=== PATIENT | female | born 1935 | race Caucasian/White ===

== ENCOUNTER 2022-02-07 05:34 | Inpatient (IN) | payer MEDICARE, OTHER, SELFPAY ==
[2022-02-07] VITALS (13 sets, daily range): BP systolic 100–139; BP diastolic 54–84; PULSE 57–89; RESP 16–20; TEMP 35.8–36.6; O2SAT 92–100; BMI 31.6
--- NOTE | 2022-02-07 01:59 | ADMGEN ---
This patient, Ana Solo, was admitted to 2 Medical Room 259-01. Patient/family oriented to hospital policies and general routines including ID bracelet, bed and alarms, visiting hours, pain management, procedures, bathroom and other care routines, personal items, smoking policy, room service/diet, and visiting hours. Information on how to activate the Rapid Response Team has been discussed. Patient/Family are encouraged to report perceived risks to care and to ask questions if they do not understand what they are told or what they should do.
[2022-02-07] MEDS: DEXTROSE 5%/0.45% SOD CHL 1,000 ML 100 ML IV CONT ×2 (05:45→23:56)
[2022-02-07 06:25] LABS: Basophils Percent Auto 0.4 % (0.2-1.2); Eosinophils Absolute Auto 0.1 K/mm3 (0-0.3); Eosinophils Percent Auto 0.9 % (0-4.4); Hematocrit 48.1 % (37.0-47.0); Hemoglobin 15.2 g/dL (12.0-15.0); Immature Granulocyte Absolute 0.03 K/mm3 (0.00-0.031); Immature Granulocyte Percent A 0.4 % (0-0.5); Lymphocytes Absolute Auto 1.52 K/mm3 (0.9-3.2); Lymphocytes Percent Auto 21.6 % (18.3-44.2); Mean Corpuscular HGB Conc 31.6 g/dl (32-36); Mean Corpuscular Hemoglobin 32.3 pg (26-34); Mean Corpuscular Volume 102.3 fl (80-100); Mean Platelet Volume 9.6 fl (7.4-10.4); Monocytes Absolute Auto 0.6 K/mm3 (0.1-0.6); Monocytes Percent Auto 8.8 % (2.6-8.5); Neutrophils Absolute Auto 4.8 K/mm3 (1.3-6.7); Neutrophils Percent Auto 67.9 % (45.5-73.1); Platelet Count Result 178 k/mm3 (150-375); Red Cell Distribution Width 16.5 % (11.5-14.5)
[2022-02-07] MEDS: ONDANSETRON INJ 4 MG/2 ML VIAL IV PUSH ×2 (06:28→14:16)
[2022-02-07] MEDS: HYDROmorphone HCL INJ (*CRX) 1 MG/ML SYR 0.5 MG IV PUSH (06:29)
[2022-02-07 06:39] LABS: Partial Thromboplastin Time 40.7 SECONDS (22.3-36.8); Prothrombin Time 22.3 Seconds (11.1-14.7)
[2022-02-07 06:43] LABS: Anion Gap 8 mmol/L (8-16); Blood Urea Nitrogen 28 mg/dL (7-17); Calcium 9.2 mg/dL (8.4-10.2); Carbon Dioxide 26 mmol/L (22-30); Chloride 100 mmol/L (98-107); Estimated CRCL calculation 63 ml/min; Estimated Glomerular Filt Rate > 60; Glucose 104 mg/dL (65-110); Potassium 4.2 mmol/L (3.4-5.0); Sodium 134 mmol/L (137-145)
--- NOTE | 2022-02-07 08:15 | PM.IMHP ---
H&P: HPI History of Present Illness Date/Time: 02/07/22 08:15 Chief Complaint: Incarcerated hernia Narrative: 87-year-old female with known history of liver mass that is being treated conservatively given her age and comorbidities [facility] ep[facility] abdominal pain associated no vomiting. she also noted that her right inguinal hernia was bigger and more former and sore over the past 24 hours. It was out and not able to be reduced whole day yesterday. She was assessed in the ER for evaluation. She was noted to have right inguinal hernia in the ER 1 was attempted to be reduced which was not able to be done. She was then sent to this hospital for surgical evaluation. Lab evaluation in the ER WBC 5.7 hemoglobin 16 hematocrit 49 platelet 194 INR 2.2 PTT 43 Glucose 123 BUN 29 creatinine of 0.8 sodium 132 potassium 6.9 chloride 99 bicarbonate 31 calcium 8.5 total bilirubin 1.7 total protein 7 albumin 1.9 AST 121 ALT 41 alkaline phosphatase is 236 troponin 13 lactic acid is 1.5 lipase 86 There is also reported another BMP with potassium was 4.9, potassium was feel to be Allen yes as no treatment was done and was repeated which came back as normal. CT abdomen and pelvis right inguinal hernia with evidence of incarceration and some concern for developing bowel obstruction due to dilated loops just proximal to the hernia. COVID swab was done which was negative Family history mother MRI, father stroke, coronary artery disease Social history: Former smoker social drinker no illicit drug use Past medical history: Diffuse arthritis, hypertension, proximal atrial fibrillation on chronic anticoagulation Review of Systems Review of Systems: - CONSTITUTIONAL: Denies weight loss, fever and chills. - HEENT: Denies changes in vision and hearing - RESPIRATORY: Denies SOB and cough. - CV: Denies palpitations and CP. - GI: reports abdominal pain, nausea, no vomiting and diarrhea. - : Denies dysuria and urinary frequency. - MSK: Denies myalgia and joint pain. - SKIN: Denies rash and pruritus. - NEUROLOGICAL: Denies headache and syncope. - PSYCHIATRIC: Denies recent changes in mood. Denies anxiety and depression. [facility] Family History Family History (Updated 02/07/22 @ 02:07 by Flaca Walton RN) Mother Acute myocardial infarction Abdominal aneurysm Social History Social History Smoking status: Never smoker Alcohol intake: former Drinks per week: 7 Substance use: never Substance use type: does not use Spiritual care concerns: No Meds Home Medications and Allergies Home Medications Medication Instructions Recorded Confirmed Type baclofen 10 mg tablet 10 mg PO TID PRN .muscle spasms 02/07/22 02/07/22 History furosemide 40 mg tablet 40 mg PO DAILY 02/07/22 02/07/22 History melatonin 1 mg tablet 2 mg PO HS PRN Sleep 02/07/22 02/07/22 History potassium chloride 10 mEq 10 meq PO DAILY 02/07/22 02/07/22 History tablet,extended release (Klor-Con) propranolol 20 mg tablet 20 mg PO TID 02/07/22 02/07/22 History spironolactone 25 mg tablet 25 mg PO DAILY 02/07/22 02/07/22 History tramadol 50 mg tablet 50 mg PO Q6H PRN pain 02/07/22 02/07/22 History vitamins A,C,T-mlna-ckevno 14,320 1 cap PO BID 02/07/22 02/07/22 History unit-226 mg-200 unit capsule (PreserVision AREDS) warfarin 3 mg tablet 3 mg PO DAILY 02/07/22 02/07/22 History Allergies Allergy/AdvReac Type Severity Reaction Status Date / Time omeprazole [From Prilosec] Allergy Hives Verified 02/07/22 05:18 Vital Signs Vital Signs - 24 hr 02/07/22 02:33 02/07/22 02:36 02/07/22 03:41 Temperature 96.6 F L 97.5 F L Pulse Rate 61 71 Respiratory Rate 20 20 Blood Pressure 133/65 139/75 Pulse Oximetry 95 100 Oxygen Delivery Room Air Exam Narrative: GENERAL: The patient is well developed, not in acute distress HEENT: Nonicteric sclerae, PERRLA, EOMI. Oropharynx clear. Moist mu
--- NOTE | 2022-02-07 09:54 | PM.CNGS ---
Assessment and Plan Assessment and plan (1) Incarcerated right inguinal hernia: Code(s): K40.30 - Unilateral inguinal hernia, with obstruction, without gangrene, not specified as recurrent Status: Acute Assessment and Plan: Patient presented to [place] ER with an incarcerated right inguinal hernia. She has noticed a bulge in her right groin for many years, but has been asymptomatic. CT scan at [place] [facility] showed an incarcerated right inguinal hernia containing a segment of small bowel with possible developing bowel obstruction secondary to the hernia. Her right inguinal hernia has now been reduced. Her abdominal exam is benign. Recommend proceeding with repair incarcerated right inguinal hernia by Dr. Frederick. Description of the procedure, risks, benefits, expected outcomes, and expected recovery were discussed with the patient in detail. Given her comorbidities, age, and anticoagulation, the patient does have some increased risks for surgery. She is currently on warfarin therapy for her atrial fibrillation. INR is 2.0. The hospitalist is working on reversing her anticoagulation to plan for surgery tomorrow. We will allow her to have a regular diet today and make her NPO after midnight. (2) Atrial fibrillation: Code(s): I48.91 - Unspecified atrial fibrillation Status: Chronic Assessment and Plan: Rate controlled. Propranolol continued. Patient takes warfarin for chronic anticoagulation. Hold warfarin for surgery. 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 INR 2.2 at outlying facility and repeated this morning here which showed an INR of 2.0. Dr. Frederick discussed reversal of the anticoagulation with the hospitalist. She will be receiving vitamin K and 2 units of FFP. Recheck INR in the morning. (4) Hypertension: Code(s): I10 - Essential (primary) hypertension Status: Chronic (5) Lymphedema: Code(s): I89.0 - Lymphedema, not elsewhere classified Status: Chronic (6) Unspecified fracture of right femur, sequela: Code(s): S72.91XS - Unspecified fracture of right femur, sequela Status: Chronic Assessment and Plan: Distal right femur fracture in November of 2021 being managed conservatively with nonoperative treatment. She takes tramadol and baclofen as needed. She has been undergoing physical therapy at [facility] since November. Plan I have discussed the patient's case and plan of care with Dr. Frederick. Thank you for allowing us to see the patient in consultation and we will continue to follow along with you. History of Present Illness Consult details Consult date: 02/07/22 Reason for consult: other Requesting physician: Rogers Ocampo MD Narrative: This is an 87-year-old female with a history of chronic atrial fibrillation on warfarin therapy, hypertension, essential tremors, and lymphedema, who presented to [place] [facility] from [facility] for evaluation of epigastric abdominal pain. She reports noticing a bulge in her right groin intermittently for many years. She denies ever having pain or issues with the bulge until yesterday. She reports an onset of epigastric abdominal pain after having breakfast. Her pain became more severe as the day went on and she developed nausea with one episode of vomiting. In the afternoon, she did notice a firm bulge in her right groin. She reports that the bulge felt larger than normal and was hard. She denies any tenderness or pain in her groin. Due to the persistent abdominal pain, she presented to the ER in [place]. CT scan of the abdomen and pelvis showed evidence of an incarcerated right inguinal hernia with a segment of small bowel with concern for developing bowel obstruction secondary to the hernia. The patient is on warfarin therapy and her INR was 2.2 at the [facility]
[2022-02-07] MEDS: PHYTONADIONE ADULT INJ 10 MG in DEXTROSE 5% IN WATER 50 ML 100 MG IVPB (10:04)
[2022-02-07] MEDS: PROPRANOLOL HCL 20 MG TABLET PO ×3 (10:07→16:50)
--- NOTE | 2022-02-07 11:35 | WPDANESEPPF ---
Anes - Initial Pre Proc Eval Procedure: Operation Date: 02/08/22 13:00 Proposed Procedures p Inguinal Hernia Repair(Right) - Xu Frederick MD Date/Time: 02/07/22 11:35 Surgeon: Uri Strong MD Pre Op Diagnosis: Incarcerated Hernia Patient Data Age: 87 Gender: F Height: 1.75 m Weight: 97 kg Last Vital Signs Temp 36.3 C L 02/07/22 11:19 Pulse 73 02/07/22 11:19 Resp 20 02/07/22 11:19 BP 100/56 L 02/07/22 11:19 Pulse Ox 93 02/07/22 11:19 O2 Del Method Room Air 02/07/22 02:33 Allergies Allergy/AdvReac Type Severity Reaction Status Date / Time omeprazole [From [facility]] Allergy Hives Verified 02/08/22 11:35 Home Medications Medication Instructions Recorded Confirmed Type baclofen 10 mg tablet 10 mg PO TID PRN .muscle spasms 02/07/22 02/07/22 History furosemide 40 mg tablet 40 mg PO DAILY 02/07/22 02/07/22 History melatonin 1 mg tablet 2 mg PO HS PRN Sleep 02/07/22 02/07/22 History potassium chloride 10 mEq 10 meq PO DAILY 02/07/22 02/07/22 History tablet,extended release (Klor-Con) propranolol 20 mg tablet 20 mg PO TID 02/07/22 02/07/22 History spironolactone 25 mg tablet 25 mg PO DAILY 02/07/22 02/07/22 History tramadol 50 mg tablet 50 mg PO Q6H PRN pain 02/07/22 02/07/22 History vitamins A,C,N-cgyi-qkbdow 14,320 1 cap PO BID 02/07/22 02/07/22 History unit-226 mg-200 unit capsule (PreserVision AREDS) warfarin 3 mg tablet 3 mg PO DAILY 02/07/22 02/07/22 History Laboratory Tests 02/07/22 02/07/22 02/07/22 06:15 06:15 06:15 WBC 7.0 K/mm3 K/mm3 (4.5-10.0) RBC 4.70 M/mm3 M/mm3 (4.2-5.4) Hgb 15.2 g/dL H g/dL (12.0-15.0) Hct 48.1 % H % (37.0-47.0) MCV 102.3 fl H fl (80-100) MCH 32.3 pg pg (26-34) MCHC 31.6 g/dl L g/dl (32-36) RDW 16.5 % H % (11.5-14.5) Plt Count 178 k/mm3 k/mm3 (150-375) MPV 9.6 fl fl (7.4-10.4) Immature Gran % (Auto) 0.4 % % (0-0.5) Neut % (Auto) 67.9 % % (45.5-73.1) Lymph % (Auto) 21.6 % % (18.3-44.2) [place] % (Auto) 8.8 % H % (2.6-8.5) Eos % (Auto) 0.9 % % (0-4.4) Baso % (Auto) 0.4 % % (0.2-1.2) Lymph # (Auto) 1.52 K/mm3 K/mm3 (0.9-3.2) [place] # (Auto) 0.6 K/mm3 K/mm3 (0.1-0.6) Eos # (Auto) 0.1 K/mm3 K/mm3 (0-0.3) Baso # (Auto) 0.0 K/mm3 K/mm3 (0.0-0.1) Abs Immat Gran (auto) 0.03 K/mm3 K/mm3 (0.00-0.031) Absolute Neuts (auto) 4.8 K/mm3 K/mm3 (1.3-6.7) Absolute Nucleated RBC 0.0 K/mm3 K/mm3 (0.0-0.012) Nucleated RBC % 0.0 % % (0.0-0.2) PT 22.3 Seconds H Seconds (11.1-14.7) INR 2.0 APTT 40.7 SECONDS H SECONDS (22.3-36.8) Sodium 134 mmol/L L mmol/L (137-145) Potassium 4.2 mmol/L mmol/L (3.4-5.0) Chloride 100 mmol/L mmol/L (98-107) Carbon Dioxide 26 mmol/L mmol/L (22-30) Anion Gap 8 mmol/L mmol/L (8-16) BUN 28 mg/dL H mg/dL (7-17) Creatinine 0.70 mg/dL mg/dL (0.7-1.0) Estim Creat Clear Calc 63 ml/min ml/min Estimated GFR > 60 (59 - ) Glucose 104 mg/dL mg/dL (65-110) Calcium 9.2 mg/dL mg/dL (8.4-10.2) Blood Type 02/07/22 08:44 WBC RBC Hgb Hct MCV MCH MCHC RDW Plt Count MPV Immature Gran % (Auto) Neut % (Auto) Lymph % (Auto) [place] % (Auto) Eos % (Auto) Baso % (Auto) Lymph # (Auto) [place] # (Auto) Eos # (Auto) Baso # (Auto) Abs Immat Gran (auto) Absolute Neuts (auto) Absolute Nucleated RBC Nucleated RBC % PT INR APTT Sodium Potassium Chloride Carbon Dioxide Anion Gap BUN Creati
[2022-02-07] MEDS: OPTI-GEN TAB 1 TABLET PO (16:46)
[2022-02-07] MEDS: traMADol HCL (*CRX) 50 MG TABLET PO (17:44)
[2022-02-08] VITALS (13 sets, daily range): BP systolic 97–140; BP diastolic 48–80; PULSE 54–79; RESP 12–20; TEMP 35.7–36.6; O2SAT 95–100
[2022-02-08 05:55] LABS: Hematocrit 49.1 % (37.0-47.0); Hemoglobin 15.2 g/dL (12.0-15.0); Mean Corpuscular Hemoglobin 32.5 pg (26-34); Mean Corpuscular Volume 104.9 fl (80-100); Platelet Count Result 157 k/mm3 (150-375); Red Blood Count 4.68 M/mm3 (4.2-5.4); Red Cell Distribution Width 16.5 % (11.5-14.5); White Blood Count 5.5 K/mm3 (4.5-10.0)
[2022-02-08 06:04] LABS: INR 1.5; Prothrombin Time 17.5 Seconds (11.1-14.7)
[2022-02-08 06:05] LABS: Partial Thromboplastin Time 35.4 SECONDS (22.3-36.8)
[2022-02-08 06:22] LABS: Anion Gap 4 mmol/L (8-16); Blood Urea Nitrogen 24 mg/dL (7-17); Calcium 8.9 mg/dL (8.4-10.2); Carbon Dioxide 34 mmol/L (22-30); Chloride 97 mmol/L (98-107); Estimated CRCL calculation 50 ml/min; Estimated Glomerular Filt Rate 60; Glucose 91 mg/dL (65-110); Potassium 4.5 mmol/L (3.4-5.0); Sodium 135 mmol/L (137-145)
[2022-02-08] MEDS: PROPRANOLOL HCL 20 MG TABLET PO ×2 (08:29→16:19)
--- NOTE | 2022-02-08 11:01 | WPDANESEPPF ---
Anes - Initial Pre Proc Eval Procedure: Operation Date: 02/08/22 12:00 Proposed Procedures p Inguinal Hernia Repair(Right) - Xu Frederick MD Date/Time: 02/08/22 11:01 Surgeon: Otoniel Pre Op Diagnosis: Incarcerated Hernia Patient Data Age: 87 Gender: F Height: 1.75 m Weight: 97 kg Last Vital Signs Temp 36.3 C L 02/08/22 08:28 Pulse 68 02/08/22 08:28 Resp 16 02/08/22 08:28 BP 104/61 02/08/22 08:28 Pulse Ox 96 02/08/22 08:28 O2 Del Method Room Air 02/07/22 20:00 Allergies Allergy/AdvReac Type Severity Reaction Status Date / Time omeprazole [From [facility]] Allergy Hives Verified 02/07/22 05:18 Home Medications Medication Instructions Recorded Confirmed Type baclofen 10 mg tablet 10 mg PO TID PRN .muscle spasms 02/07/22 02/07/22 History furosemide 40 mg tablet 40 mg PO DAILY 02/07/22 02/07/22 History melatonin 1 mg tablet 2 mg PO HS PRN Sleep 02/07/22 02/07/22 History potassium chloride 10 mEq 10 meq PO DAILY 02/07/22 02/07/22 History tablet,extended release (Klor-Con) propranolol 20 mg tablet 20 mg PO TID 02/07/22 02/07/22 History spironolactone 25 mg tablet 25 mg PO DAILY 02/07/22 02/07/22 History tramadol 50 mg tablet 50 mg PO Q6H PRN pain 02/07/22 02/07/22 History vitamins A,C,R-ilfe-rtpzcp 14,320 1 cap PO BID 02/07/22 02/07/22 History unit-226 mg-200 unit capsule (PreserVision AREDS) warfarin 3 mg tablet 3 mg PO DAILY 02/07/22 02/07/22 History Laboratory Tests 02/07/22 02/08/22 02/08/22 08:44 05:24 05:24 WBC 5.5 K/mm3 K/mm3 (4.5-10.0) RBC 4.68 M/mm3 M/mm3 (4.2-5.4) Hgb 15.2 g/dL H g/dL (12.0-15.0) Hct 49.1 % H % (37.0-47.0) MCV 104.9 fl H fl (80-100) MCH 32.5 pg pg (26-34) MCHC 31.0 g/dl L g/dl (32-36) RDW 16.5 % H % (11.5-14.5) Plt Count 157 k/mm3 k/mm3 (150-375) MPV 10.0 fl fl (7.4-10.4) PT 17.5 Seconds H D Seconds (11.1-14.7) INR 1.5 APTT 35.4 SECONDS SECONDS (22.3-36.8) Sodium Potassium Chloride Carbon Dioxide Anion Gap BUN Creatinine Estim Creat Clear Calc Estimated GFR Glucose Calcium Blood Type AB Positive 02/08/22 05:24 WBC RBC Hgb Hct MCV MCH MCHC RDW Plt Count MPV PT INR APTT Sodium 135 mmol/L L mmol/L (137-145) Potassium 4.5 mmol/L mmol/L (3.4-5.0) Chloride 97 mmol/L L mmol/L (98-107) Carbon Dioxide 34 mmol/L H mmol/L (22-30) Anion Gap 4 mmol/L L mmol/L (8-16) BUN 24 mg/dL H mg/dL (7-17) Creatinine 0.90 mg/dL mg/dL (0.7-1.0) Estim Creat Clear Calc 50 ml/min ml/min Estimated GFR 60 (59 - ) Glucose 91 mg/dL mg/dL (65-110) Calcium 8.9 mg/dL mg/dL (8.4-10.2) Blood Type Results Review: All pre-operative results and documents have been reviewed as part of the pre-operative evaluation. [facility] Past Medical History Medical History (Updated 02/07/22 @ 11:36 by Narayan Tucker MD) Arthritis Atrial fibrillation Essential and other specified forms of tremor Hypertension Incarcerated right inguinal hernia Unspecified fracture of right femur, sequela Surgical History Surgical History (Updated 02/07/22 @ 10:09 by ARLENE Guzmán) History of cholecystectomy Open cholecystectomy History of joint replacement History of knee replacement History of vein stripping Family History Family History Mother Acute myocardial infarction Abdominal aneurysm Social History Social History Social History: Patient lives at home with her , but has been in [facility]
[2022-02-08] MEDS: LACTATED RINGERS 1,000 ML 30 ML IV CONT (11:33)
--- NOTE | 2022-02-08 12:01 | WPDHPUPDATE1 ---
History and Physical Update Update Date/Time: 02/08/22 12:01 History and Physical has been reviewed, including an updated exam of the patient. There are NO changes in the patient's condition. Risks, benefits, and alternatives have been discussed and questions answered. Patient agrees to proceed with procedure.
--- NOTE | 2022-02-08 12:08 | PM.IMPN ---
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 Features of developing small-bowel obstruction and the recent CT scan reported. General surgery consulted. Plan for hernia repair today #perioperative anticoagulation management. Her warfarin held for the planned surgery. INR is 2. Given vitamin K for reversal of her INR. Along with 2 units of FFP. Recheck INR this morning was 1.5. Resume warfarin post surgery when appropriate from the surgical standpoint. # atrial fibrillation chronic rate controlled. INR therapeutic. On Coumadin for stroke prophylaxis. On propranolol for rate control/essential tremor which will be continued perioperatively. #hypertension stable home medication # essential tremors on propranolol # recent right femur fracture distal November 2021 Pamella is conservatively/non operatively by Dr. Pantoja. pain control with current medication which is baclofen for the spasms # chronic bilateral lower extremity lymphedema on spironolactone and furosemide. # insomnia on melatonin at night p.r.n.. # DVT prophylaxis therapeutic INR though Coumadin on hold for planned surgery in the morning # code status full code Subjective Date/time seen: 02/08/22 12:08 Interval history: No overnight events. No new complains. Denies any chest pain or shortness of breath. Denies any abdominal pain nausea vomiting. Going for the surgery today for the hernia repair. Review of Systems Review of Systems: All systems reviewed & are unremarkable except as noted in HPI and below Exam Narrative: GENERAL: The patient is well developed, not in acute distress HEENT: Nonicteric sclerae, PERRLA, EOMI. Oropharynx clear. Moist mucous membranes. Conjunctivae appear well perfused. CHEST: Chest wall is nontender. HEART: Regular rate and rhythm without murmur, rubs, or gallops LUNGS: Clear to auscultation bilaterally. no respiratory distress ABDOMEN: Soft, positive bowel sounds, non-tender, no organomegaly. no hernia noted SKIN: No rash, no excessive bruising, petechiae, or purpura. NEUROLOGIC: Cranial nerves II-XII intact, alert and oriented x 3, no gross motor deficitsEssential tremors noted EXTREMITIES: bilateral lymphedema, no cyanosis or clubbing Objective Data Vital Signs Vital Signs: Vital Signs - 24 hr 02/07/22 13:40 02/07/22 13:34 02/07/22 12:34 Temperature 97.9 F 97.9 F Pulse Rate 89 89 70 Respiratory Rate 20 18 Blood Pressure 110/54 L 114/58 L Pulse Oximetry 92 93 Oxygen Delivery 02/07/22 13:34 02/07/22 14:45 02/07/22 16:50 Temperature 97.9 F 97.9 F Pulse Rate 89 64 64 Respiratory Rate 20 18 Blood Pressure 110/54 L 127/65 Pulse Oximetry 92 95 Oxygen Delivery 02/07/22 16:10 02/07/22 20:00 02/07/22 20:00 Temperature 96.6 F L 96.5 F L Pulse Rate 57 L 64 Respiratory Rate 18 20 Blood Pressure 118/71 111/84 Pulse Oximetry 98 97 Oxygen Delivery Room Air 02/08/22 00:00 02/08/22 03:36 02/08/22 08:28 Temperature 96.3 F L 96.3 F L 97.3 F L
[2022-02-08] MEDS: ceFAZolin 2 GM/D5W 50 ML 2 GM/50 ML BAG IVPB (12:54)
[2022-02-08] MEDS: BUPIVACAINE/EPINEPHRINE 0.25% 50 ML VIAL 30 ML INFILTRATE (13:16)
--- NOTE | 2022-02-08 14:41 | W.PM.PROC2 ---
Procedure Note - Detailed Date of Procedure 02/08/22 Pre-op Diagnosis Incarcerated right inguinal hernia Post-op Diagnosis Other (Incarcerated right femoral hernia) Procedure Performed Repair incarcerated right femoral hernia with Josiah's ligament repair (Madison). Surgeon Xu Frederick MD Form Setter/Driver Oren RODRÍGUEZ Anesthesia General, Local (0.25% bupivacaine with epinephrine) and Other (Xaracoll) Indications Patient transferred from the emergency room in [place] night before last with an incarcerated right inguinal hernia. When she arrived here the hernia was no longer painful but could not be reduced. She was anticoagulated with warfarin and that has been reversed. She is taken to surgery now for repair of incarcerated right inguinal hernia Findings This was actually a large incarcerated femoral hernia with cecum protruding from the femoral hernia defect. Patient had also had previous vein stripping and there was scar tissue in the femoral area from this prior surgery. A subcutaneous drain was placed in the right femoral area as there was a large space left behind once the hernia was reduced. With the 2 femoral surgeries, seroma or even lymphocele are a risk postoperatively. Description of Procedure Patient was taken to surgery and anesthesia was introduced. The right groin and pubic regions as well as the abdomen were prepped and draped. The proposed incision was marked on the right inguinal area. Local was infiltrated into the skin and the subcutaneous. Incision was made and dissection was then carried down through the subcutaneous. Just below Arsenio's fascia we encountered the herniated contents. This was obviously some of the colon and since we were on the right side, most likely this was cecum. There were a lot of adhesions of the incarcerated tissue with the previous dissection for vein stripping. Cautery was used for hemostasis. The herniated contents were dissected free from the surrounding tissues. It took a fair amount of time to identify the external oblique aponeurosis and the external ring and clearly know this was a femoral hernia. Once the anatomy was dissected out fairly clearly, local anesthesia was infiltrated deep to the external oblique aponeurosis in the area of the inguinal canal. The external oblique aponeurosis was opened laterally and extended medially through the external ring. The ilioinguinal nerve was really never seen in the inguinal canal. We dissected the leaves of the aponeurosis from the round ligament and inguinal canal contents. I then mobilized the round ligament medially and divided it with the cautery. I then dissected the round ligament back to the internal ring and divided it at the internal ring such that it would retract into the abdomen. Round ligament was discarded. I then exposed the area of the femoral canal within the inguinal canal. I dilated the femoral canal from below the inguinal ligament with finger dissection. I tried to reduce the hernia but was unsuccessful. I then used a some sharp dissection as well as some additional finger dissection and eventually freed up the adhesions at the neck of the femoral canal such that I could reduce the incarcerated hernia contents. I placed a Ray-Radha sponge in the defect. A looked for any signs of bleeding and achieved good hemostasis. I then dissected from the pubic tubercle down to Josiah's ligament. We proceeded with a Coopers ligament or Madison repair. 0 Ethibond suture were placed starting at the pubic tubercle and suturing the pubic tubercle to the transversalis fascia medially. The next few sutures sutured transversalis fascia to Josiah's ligament. A transition stitch was then placed suturing transversalis fascia to Josiah's ligament and to the reflection of the inguinal ligament. This obliterated the femoral hernia defect. We then continued suturing transversalis fascia to the reflection of the inguinal ligament from medial to lateral u
[2022-02-08] MEDS: SPIRONOLACTONE 25 MG TABLET PO (16:18)
[2022-02-08] MEDS: POTASSIUM CHLORIDE 10 MEQ TABLET.ER PO (16:18)
[2022-02-08] MEDS: FUROSEMIDE 40 MG TABLET PO (16:18)
[2022-02-08] MEDS: FAMOTIDINE 20 MG/2 ML VIAL IV PUSH (20:59)
[2022-02-09 00:08] VITALS: BP 124/58; PULSE 87; RESP 20; TEMP 36.3; O2SAT 98
[2022-02-09] MEDS: DEXTROSE 5%/0.45% SOD CHL 1,000 ML 60 ML IV CONT (00:24)
[2022-02-09 05:22] VITALS: BP 112/50; PULSE 68; RESP 20; TEMP 36.4; O2SAT 93
[2022-02-09 06:02] LABS: Hematocrit 43.5 % (37.0-47.0); Hemoglobin 13.9 g/dL (12.0-15.0); Mean Corpuscular Hemoglobin 32.9 pg (26-34); Mean Corpuscular Volume 102.8 fl (80-100); Mean Platelet Volume 9.8 fl (7.4-10.4); Platelet Count Result 171 k/mm3 (150-375); Red Blood Count 4.23 M/mm3 (4.2-5.4); Red Cell Distribution Width 16.2 % (11.5-14.5); White Blood Count 6.8 K/mm3 (4.5-10.0)
[2022-02-09 06:12] LABS: INR 1.4; Prothrombin Time 16.9 Seconds (11.1-14.7)
[2022-02-09 06:17] LABS: Anion Gap 3 mmol/L (8-16); Blood Urea Nitrogen 24 mg/dL (7-17); Calcium 8.2 mg/dL (8.4-10.2); Carbon Dioxide 32 mmol/L (22-30); Chloride 99 mmol/L (98-107); Estimated CRCL calculation 50 ml/min; Estimated Glomerular Filt Rate 60; Glucose 95 mg/dL (65-110); Potassium 4.4 mmol/L (3.4-5.0); Sodium 134 mmol/L (137-145)
[2022-02-09] MEDS: traMADol HCL (*CRX) 50 MG TABLET PO ×2 (07:19→23:59)
[2022-02-09] MEDS: PROPRANOLOL HCL 20 MG TABLET PO ×3 (08:10→17:57)
[2022-02-09] MEDS: FUROSEMIDE 40 MG TABLET PO (08:10)
[2022-02-09] MEDS: POTASSIUM CHLORIDE 10 MEQ TABLET.ER PO (08:10)
[2022-02-09] MEDS: ENOXAPARIN 40 MG/0.4 ML SYRINGE SUB-Q (08:10)
[2022-02-09] MEDS: SPIRONOLACTONE 25 MG TABLET PO (08:10)
[2022-02-09] MEDS: FAMOTIDINE 20 MG/2 ML VIAL IV PUSH (08:11)
--- NOTE | 2022-02-09 08:23 | PM.PNGS ---
Progress Note: A&P Assessment and Plan (1) Incarcerated femoral hernia: Code(s): K41.30 - Unilateral femoral hernia, with obstruction, without gangrene, not specified as recurrent Status: Acute Assessment and Plan: Incision looks good. No evidence recurrent hernia or wound problems. Sanguinous drainage from LANNY drain. Drain will need to be in several days. Probably she will go back to the group home facility with the drain in place. Will go ahead and restart physical therapy today. Up in chair. Advanced to regular diet. 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 INR 1.4 Subjective Subjective Date/Time Seen: 02/09/22 08:23 Post Op day: 1 Patient reports: pain is less (Minimal right groin discomfort), tolerating liquids well, no flatus, no bowel movement, afebrile and other (Complains of her feet hurting, takes tramadol for this, chronic problem) Exam Const: General: comfortable and no acute distress; No confusion GI: Inspection: non-distended, incision (Dry and healing well), no visible herniation and other (Bloody drainage in LANNY drain) GI Palp: Yes Soft to palpation, Yes Tenderness to palpation present (GI) (Minimal right groin tenderness), No Guarding due to palpation present (GI), No Hernia present and No Rebound tenderness present Neuro: General: no focal motor deficits and No confusion Extrem: General: no calf tenderness and no edema Psych: Affect: normal affect Insight: Good insight present (Psych) Judgement: Good judgement present (Psych) Objective Data Vital Signs Vital Signs: Vital Signs - 24 hr 02/08/22 08:28 02/08/22 10:57 02/08/22 14:45 Temperature 36.3 C L 36.6 C 36.3 C L Pulse Rate 68 63 62 Respiratory Rate 16 18 13 Blood Pressure 104/61 97/63 L 121/60 Pulse Oximetry 96 99 99 Oxygen Delivery Room Air Simple Face Mask Oxygen Flow Rate 8 02/08/22 15:15 02/08/22 15:30 02/08/22 15:45 Temperature Pulse Rate 70 79 71 Respiratory Rate 16 12 12 Blood Pressure 126/71 140/78 124/77 Pulse Oximetry 98 97 99 Oxygen Delivery Room Air Room Air Room Air Oxygen Flow Rate 02/08/22 16:30 02/08/22 16:45 02/08/22 17:15 Temperature 36.4 C 36.4 C 36.4 C Pulse Rate 63 71 70 Respiratory Rate 18 18 18 Blood Pressure 132/80 129/75 128/70 Pulse Oximetry 98 100 98 Oxygen Delivery Oxygen Flow Rate 02/08/22 18:15 02/08/22 19:57 02/09/22 00:08 Temperature 36.5 C 35.8 C L 36.3 C L Pulse Rate 72 67 87 Respiratory Rate 18 20 20 Blood Pressure 130/74 104/48 L 124/58 L Pulse Oximetry 98 100 98 Oxygen Delivery Oxygen Flow Rate 02/09/22 05:22 Temperature 36.4 C L Pulse Rate 68 Respiratory Rate 20 Blood Pressure 112/50 L Pulse Oximetry 93 Oxygen Delivery Oxygen Flow Rate Intake/Output Intake/Output: Intake & Output 02/06/22 02/07/22 02/08/22 02/09/22 23:59 23:59 23:59 23:59 Intake Total 1997 2740 290 Output Total 100 640 870 Balance 1898 2100 -580 Meds/Results Medications: Active Medications Generic Name Dose Route Start Last Admin Trade Name Freq PRN Reason Stop Dose Admin Acetaminophen 500 mg 02/08/22 15:58 Acetaminophen 500 Mg Tablet PO Q6H PRN Mild Pain (1-3) or Fever Hydrocodone Bitart/Acetaminophen 1 tab 02/08/22 15:58 Hydrocodone/Acetaminophen (*Crx) 7.5-325 Mg Tablet PO Q4H PRN Pain Rated 7-10 Baclofen 10 mg 02/07/22 09:30 Baclofen 10 Mg Tablet PO TID PRN .muscle spasms Enoxaparin Sodium 40 mg 02/09/22 09:00 02/09/22 08:10 Enoxaparin 40 Mg/0.4 Ml Syringe SUB-Q 40 mg DAILY KYLE Administration Famotidine 20 mg 02/09/22 09:00 Famotidine 20 Mg Tablet PO Q12HR KYLE Fentanyl Citrate 25 mcg 02/08/22 15:
[2022-02-09 09:43] VITALS: BP 111/47; PULSE 74; RESP 18; TEMP 36.4; O2SAT 96
--- NOTE | 2022-02-09 12:53 | WPDANESPN ---
Anes - Prog Note Post-Op Date/Time: 02/09/22 12:53 Cardiovascular status: normal Respiratory status: normal Airway patency: baseline Mental status: baseline Post-Op hydration status: normal Vital Signs: Last Vital Signs Temp 97.6 F 02/09/22 09:43 Pulse 74 02/09/22 09:43 Resp 18 02/09/22 09:43 BP 111/47 L 02/09/22 09:43 Pulse Ox 96 02/09/22 09:43 O2 Del Method Room Air 02/09/22 09:01 O2 Flow Rate 8 02/08/22 14:45 Pain Score (VAS): 07/19 I/O: Intake & Output 02/08/22 02/09/22 02/09/22 23:59 07:59 15:59 Intake Total 1570 290 240 Output Total 540 870 70 Balance 1030 -580 170 Laboratory Tests 02/09/22 05:32 02/09/22 05:32 02/09/22 02/09/22 02/09/22 05:32 05:32 05:32 WBC 6.8 RBC 4.23 Hgb 13.9 Hct 43.5 MCV 102.8 H MCH 32.9 MCHC 32.0 RDW 16.2 H Plt Count 171 MPV 9.8 PT 16.9 H INR 1.4 Sodium 134 L Potassium 4.4 Chloride 99 Carbon Dioxide 32 H Anion Gap 3 L BUN 24 H Creatinine 0.90 Estim Creat Clear Calc 50 Estimated GFR 60 Glucose 95 Calcium 8.2 L Post-procedural complaints: none Patient Feedback: Patient satisfied with anesthetic care.
[2022-02-09 13:43] VITALS: BP 132/74; PULSE 69; RESP 16; TEMP 36.3; O2SAT 99
--- NOTE | 2022-02-09 13:55 | PM.IMPN ---
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 Features of developing small-bowel obstruction and the recent CT scan reported. General surgery consulted. Plan for hernia repair today #perioperative anticoagulation management. Her warfarin held for the planned surgery. INR is 2. Given vitamin K for reversal of her INR. Along with 2 units of FFP. Recheck INR this morning was 1.5. Resume warfarin post surgery when appropriate from the surgical standpoint. # atrial fibrillation chronic rate controlled. INR therapeutic. On Coumadin for stroke prophylaxis. On propranolol for rate control/essential tremor which will be continued perioperatively. #hypertension stable home medication # essential tremors on propranolol # recent right femur fracture distal November 2021 Pamella is conservatively/non operatively by Dr. Pantoja. pain control with current medication which is baclofen for the spasms # chronic bilateral lower extremity lymphedema on spironolactone and furosemide. # insomnia on melatonin at night p.r.n.. # DVT prophylaxis therapeutic INR though Coumadin on hold for planned surgery in the morning # code status full code 02/09/2022 interval history: patient is 87-year-old female while in the physical therapy for lower extremity fracture patient developed incarcerated femoral hernia patient was seen by surgery service and has surgical repair postop POD # 1. And LANNY drain was placed and draining serosanguineous, patient states pain is better passing gas, no BM seen by surgery service started the patient on regular diet, will continue to monitor and once clinically stable patient be transferred back to physical therapy, patient's son is present in the room and answered all his questions Subjective Date/time seen: 02/09/22 13:55 02/09/2022 interval history: patient is 87-year-old female while in the physical therapy for lower extremity fracture patient developed incarcerated femoral hernia patient was seen by surgery service and has surgical repair postop POD # 1. And LANNY drain was placed and draining serosanguineous, patient states pain is better passing gas, no BM seen by surgery service started the patient on regular diet, will continue to monitor and once clinically stable patient be transferred back to physical therapy, patient's son is present in the room and answered all his questions Review of Systems Review of Systems: All systems reviewed & are unremarkable except as noted in HPI and below Exam Narrative: elderly frail Patient is comfortable, NAD HEENT: eyes are clear and none icteric LUNGS: normal respiratory effort ABD: not distended Lower extremities: no edema SKIN: nonjaundiced Neuro: grossly intact. Objective Data Vital Signs Vital Signs: Vital Signs - 24 hr 02/08/22 14:45 02/08/22 15:15 02/08/22 15:30 Temperature 97.3 F L Pulse Rate 62 70 79 Respiratory Rate 13 16 12 Blood Pressure 121/60 126/71 140/78 Pulse Oximetry 99 98 97 Oxygen Delivery
[2022-02-09] MEDS: WARFARIN (*PBKC) 3 MG TABLET PO (17:58)
[2022-02-09 20:17] VITALS: BP 102/51; PULSE 62; RESP 16; TEMP 36.6; O2SAT 96
[2022-02-09] MEDS: FAMOTIDINE 20 MG TABLET PO (21:08)
[2022-02-09 23:29] VITALS: BP 108/47; PULSE 60; RESP 16; TEMP 36.3; O2SAT 94
[2022-02-10] VITALS (8 sets, daily range): BP systolic 107–121; BP diastolic 46–69; PULSE 50–104; RESP 12–18; TEMP 36.2–36.8; O2SAT 93–100
[2022-02-10 06:38] LABS: Hematocrit 42.2 % (37.0-47.0); Hemoglobin 13.5 g/dL (12.0-15.0); Mean Corpuscular Hemoglobin 32.6 pg (26-34); Mean Corpuscular Volume 101.9 fl (80-100); Mean Platelet Volume 9.9 fl (7.4-10.4); Platelet Count Result 144 k/mm3 (150-375); Red Blood Count 4.14 M/mm3 (4.2-5.4); Red Cell Distribution Width 16.2 % (11.5-14.5); White Blood Count 5.7 K/mm3 (4.5-10.0)
[2022-02-10 06:48] LABS: INR 1.5; Prothrombin Time 17.3 Seconds (11.1-14.7)
[2022-02-10 06:57] LABS: Anion Gap 3 mmol/L (8-16); Blood Urea Nitrogen 24 mg/dL (7-17); Calcium 7.9 mg/dL (8.4-10.2); Carbon Dioxide 32 mmol/L (22-30); Chloride 99 mmol/L (98-107); Estimated CRCL calculation 50 ml/min; Estimated Glomerular Filt Rate 60; Glucose 85 mg/dL (65-110); Magnesium 1.7 mg/dL (1.6-2.3); Potassium 4.3 mmol/L (3.4-5.0); Sodium 134 mmol/L (137-145)
[2022-02-10] MEDS: ENOXAPARIN 40 MG/0.4 ML SYRINGE SUB-Q (08:16)
[2022-02-10] MEDS: FUROSEMIDE 40 MG TABLET PO (08:17)
[2022-02-10] MEDS: FAMOTIDINE 20 MG TABLET PO ×2 (08:17→21:59)
[2022-02-10] MEDS: POTASSIUM CHLORIDE 10 MEQ TABLET.ER PO (08:18)
[2022-02-10] MEDS: PROPRANOLOL HCL 20 MG TABLET PO ×3 (08:19→16:39)
[2022-02-10] MEDS: traMADol HCL (*CRX) 50 MG TABLET PO (08:20)
[2022-02-10] MEDS: SPIRONOLACTONE 25 MG TABLET PO (08:20)
--- NOTE | 2022-02-10 12:21 | PM.IMPN ---
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 Features of developing small-bowel obstruction and the recent CT scan reported. General surgery consulted. Plan for hernia repair today #perioperative anticoagulation management. Her warfarin held for the planned surgery. INR is 2. Given vitamin K for reversal of her INR. Along with 2 units of FFP. Recheck INR this morning was 1.5. Resume warfarin post surgery when appropriate from the surgical standpoint. # atrial fibrillation chronic rate controlled. INR therapeutic. On Coumadin for stroke prophylaxis. On propranolol for rate control/essential tremor which will be continued perioperatively. #hypertension stable home medication # essential tremors on propranolol # recent right femur fracture distal November 2021 Pamella is conservatively/non operatively by Dr. Pantoja. pain control with current medication which is baclofen for the spasms # chronic bilateral lower extremity lymphedema on spironolactone and furosemide. # insomnia on melatonin at night p.r.n.. # DVT prophylaxis therapeutic INR though Coumadin on hold for planned surgery in the morning # code status full code 02/09/2022 interval history: patient is 87-year-old female while in the physical therapy for lower extremity fracture patient developed incarcerated femoral hernia patient was seen by surgery service and has surgical repair postop POD # 1. And LANNY drain was placed and draining serosanguineous, patient states pain is better passing gas, no BM seen by surgery service started the patient on regular diet, will continue to monitor and once clinically stable patient be transferred back to physical therapy, patient's son is present in the room and answered all his questions. 02/10/2022 interval history: patient is 87-year-old female while in the physical therapy for lower extremity fracture patient developed incarcerated femoral hernia patient was seen by surgery service and had surgical repair postop POD # 2. And LANNY drain was placed and draining serosanguineous, patient states pain is better, had BM today with minimal pain, seen by surgery service started the patient on regular diet, today patient is sitting in the chair and working with PT, will continue to monitor and once clinically stable patient will be transferred back to physical therapy, patient's daughter is present in the room and answered all her questions Subjective Date/time seen: 02/10/22 12:21 02/10/2022 interval history: patient is 87-year-old female while in the physical therapy for lower extremity fracture patient developed incarcerated femoral hernia patient was seen by surgery service and had surgical repair postop POD # 2. And LANNY drain was placed and draining serosanguineous, patient states pain is better, had BM today with minimal pain, seen by surgery service started the patient on regular diet, today patient is sitting in the chair and working with PT, will continue to monitor and once clinically stable p
--- NOTE | 2022-02-10 14:01 | PM.PNGS ---
Progress Note: A&P Assessment and Plan (1) Incarcerated femoral hernia: Code(s): K41.30 - Unilateral femoral hernia, with obstruction, without gangrene, not specified as recurrent Status: Acute Assessment and Plan: Continues to improve. No evidence recurrent hernia or wound problems. Tolerating a regular diet. Bowels are moving. Sanguinous drainage from LANNY drain. Will need to keep the LANNY drain in place for at least another couple days, therefore she will likely be discharged with the LANNY. Continue increasing activity. From our standpoint, she could potentially discharge back to the care home facility in the next 1-2 days if she continues to improve. (2) Atrial fibrillation: Code(s): I48.91 - Unspecified atrial fibrillation Status: Chronic (3) half-way current use of anticoagulant: Code(s): Z79.01 - half-way (current) use of anticoagulants Status: Chronic Assessment and Plan: She is back on her warfarin. INR 1.5 today Plan I have discussed the patient's case and plan of care with Dr. Frederick. Subjective Subjective Date/Time Seen: 02/10/22 14:01 Post Op day: 4 (Repair incarcerated right femoral hernia with Josiah's ligament repair) Patient reports: no new complaints, tolerating a regular diet, flatus, bowel movement and afebrile Interval history: Patient seen and examined this morning. She is feeling well. Her daughter is at the bedside. She reports being up in the chair this morning for 1.5 hours and tolerating this. She is working with PT/OT. She denies any nausea or vomiting. Pain is controlled. Review of Systems Review of Systems: All systems reviewed & are unremarkable except as noted in HPI and below Exam Const: General: comfortable and no acute distress Orientation/consciousness: patient oriented x3 GI: Inspection: non-distended, incision (Dry and healing well) and other (Bloody drainage in LANNY drain) GI Palp: Yes Soft to palpation, No Tenderness to palpation present (GI) and No Guarding due to palpation present (GI) Auscultation: normal bowel sounds Neuro: General: moves all extremities and no focal motor deficits Extrem: General: no calf tenderness and no edema Psych: Insight: Good insight present (Psych) Objective Data Vital Signs Vital Signs: Vital Signs - 24 hr 02/09/22 20:17 02/09/22 23:29 02/10/22 03:53 Temperature 97.8 F 97.4 F L 97.1 F L Pulse Rate 62 60 104 H Respiratory Rate 16 16 12 Blood Pressure 102/51 L 108/47 L 121/69 Pulse Oximetry 96 94 93 Oxygen Delivery 02/10/22 08:19 02/10/22 08:00 02/10/22 10:51 Temperature 97.1 F L Pulse Rate 74 69 Respiratory Rate 18 Blood Pressure 112/46 L Pulse Oximetry 98 Oxygen Delivery Room Air 02/10/22 13:08 Temperature Pulse Rate 64 Respiratory Rate Blood Pressure Pulse Oximetry Oxygen Delivery Intake/Output Intake/Output: Intake & Output 02/07/22 02/08/22 02/09/22 02/10/22 23:59 23:59 23:59 23:59 Intake Total 1997 2740 870 1860 Output Total 986 975 0110 505 Balance 1898 2100 -390 1355 Meds/Results Medications: Active Medications Generic Name Dose Route Start Last Admin Trade Name Freq PRN Reason Stop Dose Admin Acetaminophen 500 mg 02/08/22 15:58 Acetaminophen 500 Mg Tablet PO Q6H PRN Mild Pain (1-3) or Fever Hydrocodone Bitart/Acetaminophen 1 tab 02/08/22 15:58 Hydrocodone/Acetaminophen (*Crx) 7.5-325 Mg Tablet PO Q4H PRN Pain Rated 7-10 Baclofen 10 mg 02/07/22 09:30 Baclofen 10 Mg Tablet PO TID PRN .muscle spasms Enoxaparin Sodium 40 mg 02/09/22 09:00 02/10/22 08:16 Enoxaparin 40 Mg/0.4 Ml Syringe SUB-Q 40 mg DAILY KYLE Administration Famotidine 20 mg 02/09/22 09:00 02/10/22 08:17 Famotidine 20 Mg Tablet PO 20 mg Q12HR KYLE Administration Fentanyl Citrate 25 mcg 02/08/22 15:58 Fentanyl Citrate Inj (*Crx) 100 Mcg/2 Ml Vial IV PUSH Q2H PRN Pain R
[2022-02-10] MEDS: WARFARIN (*PBKC) 3 MG TABLET PO (16:38)
[2022-02-10] MEDS: LIDOCAINE 5% PATCH 2 PATCH TRANSDERM (16:38)
[2022-02-11 04:36] VITALS: BP 128/63; PULSE 78; RESP 20; TEMP 36.3; O2SAT 96
[2022-02-11 05:49] LABS: Hematocrit 43.6 % (37.0-47.0); Hemoglobin 13.6 g/dL (12.0-15.0); Mean Corpuscular HGB Conc 31.2 g/dl (32-36); Mean Corpuscular Hemoglobin 32.4 pg (26-34); Mean Corpuscular Volume 103.8 fl (80-100); Platelet Count Result 166 k/mm3 (150-375); Red Cell Distribution Width 16.3 % (11.5-14.5); White Blood Count 6.4 K/mm3 (4.5-10.0)
[2022-02-11 05:58] LABS: INR 1.5; Prothrombin Time 17.2 Seconds (11.1-14.7)
[2022-02-11 06:12] LABS: Anion Gap 4 mmol/L (8-16); Blood Urea Nitrogen 27 mg/dL (7-17); Carbon Dioxide 31 mmol/L (22-30); Chloride 97 mmol/L (98-107); Estimated CRCL calculation 45 ml/min; Estimated Glomerular Filt Rate 53; Glucose 86 mg/dL (65-110); Magnesium 1.9 mg/dL (1.6-2.3); Potassium 4.7 mmol/L (3.4-5.0); Sodium 132 mmol/L (137-145)
[2022-02-11 08:00] VITALS: BP 119/62; PULSE 69; RESP 16; TEMP 36.3; O2SAT 97
[2022-02-11 08:06] VITALS: PULSE 72
[2022-02-11] MEDS: FUROSEMIDE 40 MG TABLET PO (08:06)
[2022-02-11] MEDS: FAMOTIDINE 20 MG TABLET PO (08:06)
[2022-02-11] MEDS: PROPRANOLOL HCL 20 MG TABLET PO ×3 (08:06→16:16)
[2022-02-11] MEDS: POTASSIUM CHLORIDE 10 MEQ TABLET.ER PO (08:07)
[2022-02-11] MEDS: SPIRONOLACTONE 25 MG TABLET PO (08:07)
[2022-02-11] MEDS: ENOXAPARIN 40 MG/0.4 ML SYRINGE SUB-Q (08:07)
--- NOTE | 2022-02-11 08:21 | PM.PNGS ---
Progress Note: A&P Assessment and Plan (1) Incarcerated femoral hernia: Code(s): K41.30 - Unilateral femoral hernia, with obstruction, without gangrene, not specified as recurrent Status: Acute Assessment and Plan: Okay to discharge from surgical standpoint. I put discharge instructions in the record. She will not need any analgesics other than the tramadol she normally takes. She is okay to participate in physical therapy and occupational therapy as she was previously at the nursing facility. She will need to see me 7-10 days after discharge. The LANNY drain will be left in place after discharge. It may need to be in place for 2 or 3 weeks but I will follow that along in the office. (2) [facility] current use of anticoagulant: Code(s): Z79.01 - [facility] (current) use of anticoagulants Status: Chronic Assessment and Plan: Back on warfarin. Protime still subtherapeutic. (3) Atrial fibrillation: Code(s): I48.91 - Unspecified atrial fibrillation Status: Chronic Subjective Subjective Date/Time Seen: 02/11/22 08:21 Post Op day: 3 Patient reports: no new complaints, pain is less, tolerating a regular diet and afebrile Exam Const: General: comfortable and awake GI: Inspection: incision ( Right inguinal incision dry and healing well, LANNY output serosanguineous.) and other ( Drain output high, 185 cc yesterday.) GI Palp: Yes Soft to palpation and No Tenderness to palpation present (GI) Auscultation: normal bowel sounds Objective Data Vital Signs Vital Signs: Vital Signs - 24 hr 02/10/22 10:51 02/10/22 13:08 02/10/22 14:57 Temperature 36.2 C L 36.8 C Pulse Rate 69 64 50 L Respiratory Rate 18 16 Blood Pressure 112/46 L 107/51 L Pulse Oximetry 98 100 Oxygen Delivery 02/10/22 16:39 02/10/22 18:48 02/10/22 20:18 Temperature 36.2 C L 36.4 C L Pulse Rate 70 56 L 86 Respiratory Rate 18 18 Blood Pressure 112/49 L 108/48 L Pulse Oximetry 97 97 Oxygen Delivery 02/10/22 20:00 02/11/22 04:36 02/11/22 08:06 Temperature 36.3 C L Pulse Rate 78 72 Respiratory Rate 20 Blood Pressure 128/63 Pulse Oximetry 96 Oxygen Delivery Room Air Intake/Output Intake/Output: Intake & Output 02/08/22 02/09/22 02/10/22 02/11/22 23:59 23:59 23:59 23:59 Intake Total 2740 870 2060 120 Output Total 640 1215 985 50 Balance 2100 -345 1075 70 Meds/Results Medications: Active Medications Generic Name Dose Route Start Last Admin Trade Name Freq PRN Reason Stop Dose Admin Acetaminophen 500 mg 02/08/22 15:58 Acetaminophen 500 Mg Tablet PO Q6H PRN Mild Pain (1-3) or Fever Hydrocodone Bitart/Acetaminophen 1 tab 02/08/22 15:58 Hydrocodone/Acetaminophen (*Crx) 7.5-325 Mg Tablet PO Q4H PRN Pain Rated 7-10 Baclofen 10 mg 02/07/22 09:30 Baclofen 10 Mg Tablet PO TID PRN .muscle spasms Enoxaparin Sodium 40 mg 02/09/22 09:00 02/11/22 08:07 Enoxaparin 40 Mg/0.4 Ml Syringe SUB-Q 40 mg DAILY KYLE Administration Famotidine 20 mg 02/09/22 09:00 02/11/22 08:06 Famotidine 20 Mg Tablet PO 20 mg Q12HR KYLE Administration Fentanyl Citrate 25 mcg 02/08/22 15:58 Fentanyl Citrate Inj (*Crx) 100 Mcg/2 Ml Vial IV PUSH Q2H PRN Pain Rated 7-10 Fentanyl Citrate 12.5 mcg 02/08/22 15:58 Fentanyl Citrate Inj (*Crx) 100 Mcg/2 Ml Vial IV PUSH Q2H PRN Pain Rated 4-6 Furosemide 40 mg 02/08/22 09:00 02/11/22 08:06 Furosemide 40 Mg Tablet PO 40 mg DAILY KYLE Administration Lidocaine 2 patch 02/10/22 14:00 02/10/22 16:38 Lidocaine 5% Patch TRANSDERM 2 patch DAILY KYLE Administration Melatonin 3 mg 02/07/22 08:25 Melatonin 3 Mg Tablet PO HS PRN Sleep Miscellaneous Information 1 each 02/08/22 00:01 D/C Lovenox When Inr Reaches 2? XX 03/10/22 00:00 CLARIFY KYLE Multivitamins/Minerals 1 tablet 02/07/22 17:00 02/11/22 08:07
--- NOTE | 2022-02-11 10:17 | PCPTNOTE ---
Attempted PT treatment, patient refused treatment stating I just don't feel up to it and family reporting patient will be returning to [facility] today. Will Follow.
[2022-02-11 11:35] VITALS: BMI 11.0
[2022-02-11 11:36] LABS: EDCOVIDSCREEN Negative (Negative)
[2022-02-11 13:18] VITALS: PULSE 66
[2022-02-11 14:23] VITALS: BP 125/66; PULSE 61; RESP 20; TEMP 36.4; O2SAT 100
[2022-02-11 16:16] VITALS: PULSE 64
[2022-02-11] MEDS: WARFARIN (*PBKC) 3 MG TABLET PO (16:16)
--- NOTE | 2022-05-04 17:26 | PM.DS ---
DS: Admitting Diagnosis Discharge Date 02/11/22 Admitting Diagnosis Incarcerated hernia DS: Discharge Diagnosis Discharge Diagnosis (1) Incarcerated inguinal hernia, unilateral: Code(s): K40.30 - Unilateral inguinal hernia, with obstruction, without gangrene, not specified as recurrent Status: Deleted (2) Hypertension: Code(s): I10 - Essential (primary) hypertension Status: Chronic (3) Atrial fibrillation: Code(s): I48.91 - Unspecified atrial fibrillation Status: Chronic (4) halfway current use of anticoagulant: Code(s): Z79.01 - terminal manager (current) use of anticoagulants Status: Chronic (5) Lymphedema: Code(s): I89.0 - Lymphedema, not elsewhere classified Status: Chronic (6) Essential and other specified forms of tremor: Code(s): G25.0 - Essential tremor; G25.2 - Other specified forms of tremor Status: Acute (7) Unspecified fracture of right femur, sequela: Code(s): S72.91XS - Unspecified fracture of right femur, sequela Status: Chronic Plan # incarcerated hernia now completely reduced. Features of developing small-bowel obstruction and the recent CT scan reported. General surgery consulted. Plan for hernia repair today #perioperative anticoagulation management. Her warfarin held for the planned surgery. INR is 2. Given vitamin K for reversal of her INR. Along with 2 units of FFP. Recheck INR this morning was 1.5. Resume warfarin post surgery when appropriate from the surgical standpoint. # atrial fibrillation chronic rate controlled. INR therapeutic. On Coumadin for stroke prophylaxis. On propranolol for rate control/essential tremor which will be continued perioperatively. #hypertension stable home medication # essential tremors on propranolol # recent right femur fracture distal November 2021 Pamella is conservatively/non operatively by Dr. Pantoja. pain control with current medication which is baclofen for the spasms # chronic bilateral lower extremity lymphedema on spironolactone and furosemide. # insomnia on melatonin at night p.r.n.. # DVT prophylaxis therapeutic INR though Coumadin on hold for planned surgery in the morning # code status full code 02/09/2022 interval history: patient is 87-year-old female while in the physical therapy for lower extremity fracture patient developed incarcerated femoral hernia patient was seen by surgery service and has surgical repair postop POD # 1. And LANNY drain was placed and draining serosanguineous, patient states pain is better passing gas, no BM seen by surgery service started the patient on regular diet, will continue to monitor and once clinically stable patient be transferred back to physical therapy, patient's son is present in the room and answered all his questions. 02/10/2022 interval history: patient is 87-year-old female while in the physical therapy for lower extremity fracture patient developed incarcerated femoral hernia patient was seen by surgery service and had surgical repair postop POD # 2. And LANNY drain was placed and draining serosanguineous, patient states pain is better, had BM today with minimal pain, seen by surgery service started the patient on regular diet, today patient is sitting in the chair and working with PT, will continue to monitor and once clinically stable patient will be transferred back to physical therapy, patient's daughter is present in the room and answered all her questions DS: Summary Hospital Course Reason for hospitalization: Chief Complaint: Incarcerated hernia Narrative: 87-year-old female with known history of liver mass that is being treated conservatively given her age and comorbidities [facility] pain associated no vomiting. ? she also noted that her right inguinal hernia was bigger and more former and sore over the past 24 hours.? It was out and not able to be reduced whole da
== END 2022-02-11 17:27 | DRG 351 ==
PROVIDERS: Surgery; Admitting Provider Internal Medicine; PCP Emergency Medicine; Visit Provider Family Medicine
PROC: 0YQ70ZZ Repair Right Femoral Region, Open Approach (ICD-10-PCS; principal; 2022-02-08 12:00)
DX: K41.30 Unilateral femoral hernia, with obstruction, without gangrene, not specified as recurrent (principal); I48.20 Chronic atrial fibrillation, unspecified; S72.91XD Unspecified fracture of right femur, subsequent encounter for closed fracture with routine healing; Z20.822 Contact with and (suspected) exposure to COVID-19; I48.0 Paroxysmal atrial fibrillation; M19.90 Unspecified osteoarthritis, unspecified site; I10 Essential (primary) hypertension; G47.00 Insomnia, unspecified; I89.0 Lymphedema, not elsewhere classified; G25.0 Essential tremor; G25.2 Other specified forms of tremor; X58.XXXD Exposure to other specified factors, subsequent encounter; Z96.659 Presence of unspecified artificial knee joint; E66.9 Obesity, unspecified; Z68.31 Body mass index [BMI] 31.0-31.9, adult; Z79.01 Long term (current) use of anticoagulants; Z90.49 Acquired absence of other specified parts of digestive tract
CPT/HCPCS: 36415; 36430; 80048; 83735; 85025; 85027; 85610; 85730; 86900; 86901; 87426; 97110; 97161; 97166; 97530; A9270; C9803; J0690; J1170; J1650; J2405; J2704; J2710; J3010; J3430; J7120; P9017

== ENCOUNTER 2022-03-02 20:20 | Inpatient (IN) | payer MEDICARE, OTHER, SELFPAY ==
--- NOTE | ~2022-03-02 | CT_ITS ---
EXAMINATION: CT abdomen pelvis wo con DATE: 03/10/2022 09:45 INDICATION: Elevated bilirubin TECHNIQUE: Computed tomography (CT) of the abdomen and pelvis was performed without intravenous contr ast. Automated exposure control and iterative reconstruction technique were employed. Exam dose: 121 3.09 mGy-cm total exam DLP. COMPARISON: 03/03/2022 Limited abdominal ultrasound examination FINDINGS: Mild right pleural effusion. Bilateral lower lung infiltrate and atelectasis involving prim arily the lower lobes. Cardiomegaly. Coronary calcifications. No pericardial effusion. Approximately 3.8 x 4.6 cm right hepatic dome mass is suggested. Additional hepatic masses are not ex cluded. The common bile duct measures as much as 11 mm. Due to lack of intravenous contrast material and artifact from the right arm which lies along the lat eral aspect of the abdomen, hepatic evaluation is limited. Repeat CT examination with intravenous con trast material or preferably MR liver with MRCP examination is recommended. There is surface nodularity of the liver suggesting cirrhosis. Splenic size is within normal range. N o pancreatic mass lesion or calcification or ductal dilatation is detected. Normal morphology of the adrenal glands. No renal mass lesion or urinary tract calculus or hydroureteronephrosis is evident. There is extensive abdominal aortic calcification in addition to calcification at the origins of the celiac and super mesenteric and particularly right renal arteries. No abdominal aortic aneurysm. Ther e is calcification of the iliac arteries. No intraperitoneal or retroperitoneal or pelvic mass lesion or adenopathy is noted. The uterus is present. There is extensive streak artifact from bilateral hip replacements, limiting evaluation of the pelvic area. There is a catheter in the evacuated urinary bladder. There is opaque material in the rectum a nd colon. No bowel obstruction or intraperitoneal free air is detected. Severe lumbar spondylosis including severe degenerative disc disease at L1-2, L2-3, L3-4, with retrol isthesis at L2-3, L3-4 and L4-5. There is severe degenerative disc disease at L5-S1 with mild retroli sthesis. IMPRESSION: Approximately 3.8 x 4.6 cm right hepatic mass. Additional hepatic masses are not exclude d. Detail is limited due to lack of IV contrast material and artifact from the adjacent right upper e xtremity. Common bile duct measures up to approximately 11 mm. Surface nodularity of liver consistent with cirrhosis Further evaluation preferably with hepatic MR and MRCP is recommended. Reviewed, dictated and finalized at [facility]. Reviewed, dictated and finalized at location B. IMPRESSION: Approximately 3.8 x 4.6 cm right hepatic mass. Additional hepatic masses are not excluded. Detail is limited due to lack of IV contrast material and artifact from the adjacent right upper extremity. Common bile duct measures up to approximately 11 mm. Surface nodularity of liver consistent with cirrhosis Further evaluation preferably with hepatic MR and MRCP is recommended.
--- NOTE | ~2022-03-02 | CT_ITS ---
EXAMINATION: CT LE RT wo con DATE: 03/03/2022 09:53 INDICATION: Cellulitis. TECHNIQUE: Computed tomography (CT) of the right lower limb was performed without intravenous contras t. Automated exposure control and iterative reconstruction technique were employed. The dose-length p roduct was 1202.58 mGy-cm. COMPARISON: None FINDINGS: There is a total right knee arthroplasty with patellar resurfacing in near-anatomic alignme nt. No periprosthetic lucency to suggest loosening or infection. Partially visualized is a total left knee arthroplasty. There is plate and screw fixation of distal right fibula. There is screw fixation of the right medial malleolus. No acute fracture. Osteopenia is noted. There is hyperextension of th e metatarsophalangeal joints of the lesser toes. There is a small right knee joint effusion. There is widespread subcutaneous edema of the right lower limb with areas of skin thickening. There is fatty atrophy involving soleus and gastrocnemius muscles, severe in medial head of gastrocnemius. There are widespread arterial calcifications. IMPRESSION: 1. Right lower limb subcutaneous edema and skin thickening, consistent with cellulitis. No abscess. 2. Total right knee arthroplasty in near-anatomic alignment. 3. Small right knee joint effusion. Reviewed, dictated and finalized at location A. IMPRESSION: 1. Right lower limb subcutaneous edema and skin thickening, consistent with odell lulitis. No abscess. 2. Total right knee arthroplasty in near-anatomic alignment. 3. Small right knee joint effusion.
--- NOTE | ~2022-03-02 | US_ITS ---
EXAMINATION: US abdomen limited DATE: 03/03/2022 11:50 INDICATION: Elevated bilirubin TECHNIQUE: Multiple grayscale and Doppler ultrasound images of the abdomen were obtained. COMPARISON: None available FINDINGS: Bowel gas obscures visualization of the pancreas. The visualized portions of the pancreas a re unremarkable. There is a 1.9 x 1.7 x 1.9 cm mildly hyperechoic mass of the liver. No surface nodul arity. Normal hepatopetal flow in the main portal vein. The gallbladder is surgically absent. The nor mal common bile duct measures 5 mm. IMPRESSION: 1. Indeterminate liver mass which may be benign or malignant. Comparison with any prior imaging or fo llow-up MRI without and with contrast is recommended. Reviewed, dictated and finalized at location B. IMPRESSION: 1. Indeterminate liver mass which may be benign or malignant. Comparison with a ny prior imaging or follow-up MRI without and with contrast is recommended.
--- NOTE | ~2022-03-02 | CT_ITS ---
EXAMINATION: CT brain wo con DATE: 03/07/2022 12:19 INDICATION: Right upper extremity weakness TECHNIQUE: Computed tomography (CT) of the head was performed without intravenous contrast. The mA wa s adjusted according to patient size. Iterative reconstruction technique was employed. Exam dose: 12 86.33 mGy-cm total exam DLP. COMPARISON: None FINDINGS: Examination is limited by motion artifact despite 2 complete examinations. No intracranial mass lesion or hemorrhage or cerebrovascular accident, midline shift or mass effect i s detected. No subdural or epidural hematoma. There is moderate cerebral volume loss. Status post bilateral lens replacements. No fracture or bone destruction of the cranial vault. Included paranasal sinuses and mastoid air cell s are unremarkable. IMPRESSION: Limited examination due to motion artifact. No acute intracranial finding Reviewed, dictated and finalized at [facility]. Reviewed, dictated and finalized at location B.
--- NOTE | ~2022-03-02 | XR_ITS ---
CORRECTED REPORT This report was recreated on 04/14/2022. Original report was signed by Remberto Sykes on 03/03/2022 7:07 CDT. Examination corrected to XR chest 1V portable 04/14/2022 [facility] EXAMINATION: XR chest 1V portable DATE: 03/02/2022 23:20 INDICATION: Central line placement. TECHNIQUE: A single frontal view of the chest was obtained. COMPARISON: None. FINDINGS: There is a diffuse interstitial pattern in the lungs. No pleural effusion or pneumothorax. Cardiomegaly is noted. A right internal jugular central venous catheter is seen with tip at the superior cavoatrial junction. IMPRESSION: 1. Central line tip at superior cavoatrial junction. 2. Diffuse interstitial pattern in the lungs, likely mild pulmonary edema. 3. Cardiomegaly. Reviewed, dictated and finalized at location A. MTDD
--- NOTE | ~2022-03-02 | XR_ITS ---
EXAMINATION: XR shoulder RT 1V DATE: 03/07/2022 10:58 INDICATION: Right shoulder pain. Weakness. TECHNIQUE: A single view of right shoulder was obtained. COMPARISON: Chest single view 03/02/2022 FINDINGS: Bone alignment is normal. No fracture. There is moderate to severe osteoarthritis of glenoh umeral joint and mild osteoarthritis of acromioclavicular joint. A right internal jugular central nasra ous catheter is seen with tip at the superior cavoatrial junction. IMPRESSION: 1. Polyarticular osteoarthritis. Reviewed, dictated and finalized at location A.
[2022-03-02 18:47] VITALS: BP 82/61; PULSE 72; RESP 18; TEMP 36.9; O2SAT 100
--- NOTE | 2022-03-02 18:47 | PC.NURSE ---
This patient, Ana Solo, was admitted to Intensive Care Unit-3. Patient/family oriented to hospital policies and general routines including ID bracelet, bed and alarms, visiting hours, pain management, procedures, bathroom and other care routines, personal items, smoking policy, room service/diet, and visiting hours. Information on how to activate the Rapid Response Team has been discussed. Patient/Family are encouraged to report perceived risks to care and to ask questions if they do not understand what they are told or what they should do.
[2022-03-02 19:13] VITALS: BP 85/56; PULSE 74
[2022-03-02] MEDS: NOREPINEPHRINE 8 MG/D5W 250 ML 8 MG/250 ML BAG 22.5 MG IV CONT (19:13)
[2022-03-02 19:52] LABS: Glucose Point of Care 94 mg/dl (65-105)
[2022-03-02 20:00] VITALS: PULSE 74; PULSE 82; RESP 16; O2SAT 97
[2022-03-02 20:01] VITALS: BMI 33.5
--- NOTE | 2022-03-02 20:51 | PM.IMHP ---
H&P: HPI History of Present Illness Date/Time: 03/02/22 20:51 Chief Complaint: [facility] Past Medical History Medical History Arthritis Atrial fibrillation Essential and other specified forms of tremor Hypertension Unspecified fracture of right femur, sequela Surgical History Surgical History History of cholecystectomy Open cholecystectomy History of joint replacement History of knee replacement History of vein stripping Family History Family History Mother Acute myocardial infarction Abdominal aneurysm Social History Social History Social History: Patient lives at home with her , but has been in [facility] for rehab since a right femur fracture in November of 2021. Smoking status: Former smoker Alcohol intake: former Drinks per week: 7 Substance use: never Substance use type: does not use Gender identity (if verbalized by the patient): Female Spiritual care concerns: No Meds Home Medications and Allergies Home Medications Medication Instructions Recorded Confirmed Type baclofen 10 mg tablet 10 mg PO TID PRN .muscle spasms 02/07/22 03/02/22 History furosemide 40 mg tablet 40 mg PO DAILY 02/07/22 03/02/22 History melatonin 1 mg tablet 2 mg PO HS PRN Sleep 02/07/22 03/02/22 History potassium chloride 10 mEq 10 meq PO DAILY 02/07/22 03/02/22 History tablet,extended release (Klor-Con) propranolol 20 mg tablet 20 mg PO TID 02/07/22 03/02/22 History spironolactone 25 mg tablet 25 mg PO DAILY 02/07/22 03/02/22 History tramadol 50 mg tablet 50 mg PO Q6H PRN pain 02/07/22 03/02/22 History vitamins A,C,[id number] 14,320 1 cap PO BID 02/07/22 03/02/22 History unit-226 mg-200 unit capsule (PreserVision AREDS) warfarin 3 mg tablet 3 mg PO DAILY 02/07/22 03/02/22 History lidocaine 5 % topical patch 2 patch transdermal DAILY #20 ea 02/11/22 03/02/22 Rx (Lidoderm) tramadol 50 mg tablet 50 mg PO Q6H PRN Pain Rated 4-6 02/11/22 03/02/22 Rx #12 tabs Allergies Allergy/AdvReac Type Severity Reaction Status Date / Time hydrocodone Allergy Nausea Verified 03/02/22 20:14 omeprazole [From Prilosec] Allergy Hives Verified 02/21/22 14:39 oxycodone Allergy Nausea Verified 03/02/22 20:14 Vital Signs Vital Signs - 24 hr 03/02/22 18:47 03/02/22 19:13 Temperature 98.4 F Pulse Rate 72 74 Respiratory Rate 18 Blood Pressure 82/61 L 85/56 L Pulse Oximetry 100
[2022-03-02 22:00] VITALS: BP 102/59; PULSE 70; PULSE 75; RESP 18; O2SAT 98
[2022-03-02 22:17] VITALS: BP 84/51; PULSE 72
[2022-03-02 23:36] LABS: Hematocrit 53.4 % (37.0-47.0); Hemoglobin 16.6 g/dL (12.0-15.0); Mean Corpuscular HGB Conc 31.1 g/dl (32-36); Mean Corpuscular Hemoglobin 32.6 pg (26-34); Mean Corpuscular Volume 104.9 fl (80-100); Mean Platelet Volume 10.1 fl (7.4-10.4); Platelet Count Result 156 k/mm3 (150-375); Red Blood Count 5.09 M/mm3 (4.2-5.4); Red Cell Distribution Width 17.8 % (11.5-14.5); White Blood Count 10.4 K/mm3 (4.5-10.0)
[2022-03-02 23:52] LABS: Alanine Aminotransferase 46 U/L (6-35); Alkaline Phosphatase 173 U/L (38-126); Anion Gap 14 mmol/L (8-16); Aspartate Amino Transferase 80 U/L (14-36); Bilirubin,Total 4.4 mg/dL (0.2-1.3); Blood Urea Nitrogen 40 mg/dL (7-17); Calcium 8.7 mg/dL (8.4-10.2); Carbon Dioxide 21 mmol/L (22-30); Chloride 94 mmol/L (98-107); Estimated CRCL calculation 27 ml/min; Estimated Glomerular Filt Rate 27; Glucose 86 mg/dL (65-110); Potassium 5.1 mmol/L (3.4-5.0); Sodium 129 mmol/L (137-145)
[2022-03-03] VITALS (30 sets, daily range): BP systolic 88–134; BP diastolic 41–92; PULSE 67–95; RESP 14–22; TEMP 36.4–37.2; O2SAT 85–99
--- NOTE | 2022-03-03 | ECHO_ITS ---
Patient Info Name: Ana Solo Age: 87 years : 1935 Gender: Female Ht: 70 in Wt: 234 lbs BSA: 2.32 m2 HR: 85 bpm BP: 132 / 92 mmHg Heart Rhythm: Atrial Flutter Technical Quality: Good Exam Date: 03/03/2022 11:07 AM Exam Location: [facility] Patient Status: Inpatient Admit Date: 03/02/2022 Staff Ordering Physician: Elgin Morgan MD Poll Watcher: Ivana Blank RDCS Attending Provider: Bhaskar Kc MD Exam Type: CA echo doppler color flow Study Info Indications I50.9 - Heart failure, unspecified Complete two-dimensional, color flow and Doppler transthoracic echocardiogram is performed. Summary 1. Complete two-dimensional, color flow and Doppler transthoracic echocardiogram is performed. 2. Left ventricular chamber dimension is mildly enlarged. 3. Left ventricular systolic function is normal, estimated at >70%. 4. There is mildly increased left ventricular wall thickness. 5. The left ventricular diastolic function is indeterminate. 6. Right ventricular systolic function is reduced. TAPSE 1.2. 7. Left atrial chamber dimension is severely enlarged. 8. Right atrial chamber dimension is moderately enlarged. 9. There is no aortic valve stenosis. 10. There is trace aortic valve regurgitation. 11. There is mild mitral valve regurgitation. 12. There is mild tricuspid valve regurgitation. 13. Mild pulmonary hypertension, estimated pulmonary arterial systolic pressure is 40 mmHg. Left Ventricle Left ventricular chamber dimension is mildly enlarged. Left ventricular systolic function is normal, estimated at >70%. There is mildly increased left ventricular wall thickness. The left ventricular diastolic function is indeterminate. Right Ventricle Right ventricular chamber dimension is normal. Right ventricular systolic function is reduced. TAPSE 1.2. Left Atria Left atrial chamber dimension is severely enlarged. Right Atria Right atrial chamber dimension is moderately enlarged. Atrial Septum Mild lipomatous hypertrophy of the atrial septum. Aortic Valve The aortic valve is probable trileaflet. There is no aortic valve stenosis. There is trace aortic valve regurgitation. There is mild aortic valve calcification. Pulmonic Valve The pulmonic valve is not well visualized. There is trace pulmonic regurgitation. Mitral Valve The mitral valve has thickened leaflets. There is mild mitral valve regurgitation. The mitral valve annulus is mildly calcified. Tricuspid Valve The tricuspid valve leaflets are normal. There is mild tricuspid valve regurgitation. Mild pulmonary hypertension, estimated pulmonary arterial systolic pressure is 40 mmHg. Pericardium/Pleural The pericardium appears normal. There is no pericardial effusion. Inferior Vena Cava Normal inferior vena cava with >50% collapse upon inspiration consistent with normal right atrial pressure, 5 mmHg. Aorta The aortic root size at the sinus of Valsalva is mildly dilated. The prox ascending aorta size is normal. There is mild aortic atherosclerosis. Left Ventricular Outflow Tract Name Value Normal LVOT 2D LVOT Diameter 1.9 cm LVOT Doppler
[2022-03-03 00:06] LABS: Band Neutrophils Percent 7 % (0-6); Lymphocytes Absolute Manual 1.04 K/mm3 (1.1-4.5); Monocytes Absolute Manual 0.52 K/mm3 (0.1-0.90); Monocytes Percent Manual 5 % (3-9); Neutrophils Absolute Manual 8.84 K/mm3 (1.7-7.2); Neutrophils Percent Manual 78 % (46-73); Platelet Estimate Adequate (Adequate); Total Cells Counted 100
[2022-03-03 00:08] LABS: Glucose Point of Care 86 mg/dl (65-105)
[2022-03-03 00:51] LABS: Lactic Acid Reflex 5.6 mmol/L (0.7-2.0)
[2022-03-03] MEDS: SODIUM CHLORIDE 0.9% IV 500 ML 999 ML IV CONT (01:58)
--- NOTE | 2022-03-03 02:10 | PM.IMHP ---
H&P: HPI History of Present Illness Date/Time: 03/03/22 02:10 Chief Complaint: altered mental status Narrative: This is an 87-year-old female past medical history significant for arthritis, atrial fibrillation, hypertension, obesity,liver mass. patient was a direct admit due to right lower extremity distal color change with tenderness blistering and slough of skin altered mental status lactic acid of 7 this was at outside hospital had also brain natriuretic peptide of 5000. Blood pressure was low requiring central line placement for a vasopressor. Patient had a right inguinal hernia repair after being incarcerated at our facility and discharged to long term. Patient is delirious, confused unable to give any history speaking random things asking random things. Repeat lab work in our facility showed a lactic acid of 5.6, hemoglobin 16 hematocrit 53, sodium 129, potassium 5.1, chloride 96, creatinine 1.8 BUN 40. patient has been transferred to our facility for further evaluation, management and treatment. Review of Systems Review of Systems: ROS unobtainable: Yes unobtainable due to mental status ( Delirium, confusion.) [facility] Past Medical History Medical History Arthritis Atrial fibrillation Essential and other specified forms of tremor Hypertension Unspecified fracture of right femur, sequela Surgical History Surgical History History of cholecystectomy Open cholecystectomy History of joint replacement History of knee replacement History of vein stripping Family History Family History Mother Acute myocardial infarction Abdominal aneurysm Social History Social History Social History: Patient lives at home with her , but has been in [facility] for rehab since a right femur fracture in November of 2021. Smoking status: Former smoker Alcohol intake: former Drinks per week: 7 Substance use: never Substance use type: does not use Gender identity (if verbalized by the patient): Female Spiritual care concerns: No Meds Home Medications and Allergies Home Medications Medication Instructions Recorded Confirmed Type baclofen 10 mg tablet 10 mg PO TID PRN .muscle spasms 02/07/22 03/02/22 History furosemide 40 mg tablet 40 mg PO DAILY 02/07/22 03/02/22 History melatonin 1 mg tablet 2 mg PO HS PRN Sleep 02/07/22 03/02/22 History potassium chloride 10 mEq 10 meq PO DAILY 02/07/22 03/02/22 History tablet,extended release (Klor-Con) propranolol 20 mg tablet 20 mg PO TID 02/07/22 03/02/22 History spironolactone 25 mg tablet 25 mg PO DAILY 02/07/22 03/02/22 History tramadol 50 mg tablet 50 mg PO Q6H PRN pain 02/07/22 03/02/22 History vitamins A,C,B-urlo-yobxuh 14,320 1 cap PO BID 02/07/22 03/02/22 History unit-226 mg-200 unit capsule (PreserVision AREDS) warfarin 3 mg tablet 3 mg PO DAILY 02/07/22 03/02/22 History lidocaine 5 % topical patch 2 patch transdermal DAILY #20 ea 02/11/22 03/02/22 Rx (Lidoderm) tramadol 50 mg tablet 50 mg PO Q6H PRN Pain Rated 4-6 02/11/22 03/02/22 Rx #12 tabs Allergies Allergy/AdvReac Type Severity Reaction Status Date / Time hydrocodone Allergy Nausea Verified 03/02/22 20:14 omeprazole [From Prilosec] Allergy Hives Verified 02/21/22 14:39 oxycodone Allergy Nausea Verified 03/02/22 20:14 Vital Signs Vital Signs - 24 hr 03/02/22 18:47 03/02/22 19:13 03/02/22 22:00 Temperature 98.4 F Pulse Rate 72 74 70 Respiratory Rate 18 18 Blood Pressure 82/61 L 85/56 L 102/59 L Pulse Oximetry 100 98 Oxygen Delivery Oxygen Flow Rate 03/02/22 22:17 03/02/22 20:00 03/02/22 20:00 Temperature Pulse Rate 72 82 74 Respiratory Rate 16 Blood Pressure 84/51 L Pulse Oximetry 97 Oxygen Delivery
[2022-03-03 02:44] LABS: Reflex Lactic Acid Yes or No Add Lactic
[2022-03-03] MEDS: NOREPINEPHRINE 8 MG/D5W 250 ML 8 MG/250 ML BAG 22.5 MG IV CONT (04:40)
[2022-03-03 05:16] LABS: Hematocrit 49.1 % (37.0-47.0); Hemoglobin 15.6 g/dL (12.0-15.0); Mean Corpuscular HGB Conc 31.8 g/dl (32-36); Mean Corpuscular Hemoglobin 32.3 pg (26-34); Mean Corpuscular Volume 101.7 fl (80-100); Platelet Count Result 163 k/mm3 (150-375); Red Blood Count 4.83 M/mm3 (4.2-5.4); Red Cell Distribution Width 17.4 % (11.5-14.5); White Blood Count 14.6 K/mm3 (4.5-10.0)
[2022-03-03 05:25] LABS: Anion Gap 9 mmol/L (8-16); Blood Urea Nitrogen 42 mg/dL (7-17); Calcium 8.3 mg/dL (8.4-10.2); Carbon Dioxide 22 mmol/L (22-30); Chloride 96 mmol/L (98-107); Estimated CRCL calculation 26 ml/min; Estimated Glomerular Filt Rate 25; Glucose 114 mg/dL (65-110); Magnesium 1.6 mg/dL (1.6-2.3); Phosphorus 4.5 mg/dL (2.5-4.5); Potassium 5.3 mmol/L (3.4-5.0); Sodium 127 mmol/L (137-145)
[2022-03-03 05:26] LABS: INR 2.7; Prothrombin Time 27.8 Seconds (11.1-14.7)
[2022-03-03 05:36] LABS: Lactic Acid Reflex 4.1 mmol/L (0.7-2.0)
[2022-03-03 05:48] LABS: Band Neutrophils Percent 13 % (0-6); Lymphocytes Absolute Manual 1.16 K/mm3 (1.1-4.5); Monocytes Absolute Manual 1.16 K/mm3 (0.1-0.90); Monocytes Percent Manual 8 % (3-9); Neutrophils Absolute Manual 12.26 K/mm3 (1.7-7.2); Neutrophils Percent Manual 71 % (46-73); Platelet Estimate Adequate (Adequate); Total Cells Counted 100
[2022-03-03 05:49] LABS: Microcytosis 1+ (NORMAL)
--- NOTE | 2022-03-03 08:48 | WPDCNINT ---
Assessment and Plan Assessment and plan (1) Septic shock: Code(s): A41.9 - Sepsis, unspecified organism; R65.21 - Severe sepsis with septic shock Status: Acute Assessment and Plan: Patient appears to have cellulitis of right lower leg. Right leg is swollen red and has blisters Check CT right lower extremity to evaluate for deep tissue involvement and rule out necrotizing fasciitis General surgery has been consulted Patient received 2.5 L of fluid. Continue cautious hydration as patient is overall volume overload Continue Levophed titration to maintain mean arterial pressure Add vasopressin infusion Add stress dose steroids I will also order 25% albumin Blood culture sent in the ER and are pending Continue vancomycin and imipenem Her lactic acid level is still elevated but this may also be contributed secondary to decreased hepatic clearance as patient does have cirrhosis (2) Cellulitis of right lower extremity: Code(s): L03.115 - Cellulitis of right lower limb Status: Acute Assessment and Plan: See above Dopplers of bilateral lower extremities were negative for DVT done on 03/02 in the ER (3) SRI (acute kidney injury): Code(s): N17.9 - Acute kidney failure, unspecified Status: Acute Assessment and Plan: Likely multifactorial secondary to septic shock, intravascular volume depletion as patient was on diuretics, potassium supplement Continue cautious hydration as patient is overall volume overloaded and third-spacing Monitor urine output electrolytes and creatinine CT abdomen pelvis done in the ER shows no hydronephrosis or stone Hold diuretics and Aldactone (4) Incarcerated inguinal hernia: Code(s): K40.30 - Unilateral inguinal hernia, with obstruction, without gangrene, not specified as recurrent Status: Acute Assessment and Plan: Status post surgery on 02/[address] abdomen pelvis reviewed Surgery has been consulted (5) Encephalopathy: Code(s): G93.40 - Encephalopathy, unspecified Status: Acute Assessment and Plan: Likely toxic metabolic encephalopathy Patient is now alert oriented x3 She follows commands and moves all 4 extremities (6) Atrial fibrillation: Code(s): I48.91 - Unspecified atrial fibrillation Status: Chronic Assessment and Plan: Currently ventricular rate is controlled Beta-blockers on hold due to shock INR is therapeutic but will hold Coumadin at this time (7) Cirrhosis: Code(s): K74.60 - Unspecified cirrhosis of liver Status: Acute Assessment and Plan: Radiologically and clinically patient appears to have cirrhosis Check ammonia level Hold Coumadin LFTs reviewed (8) Elevated bilirubin: Code(s): R17 - Unspecified jaundice Status: Acute Assessment and Plan: Likely secondary to sepsis and cirrhosis Right upper quadrant ultrasound Patient is status post cholecystectomy (9) Elevated brain natriuretic peptide (BNP) level: Code(s): R79.89 - Other specified abnormal findings of blood chemistry Status: Acute Assessment and Plan: Check echo (10) Hyperkalemia: Code(s): E87.5 - Hyperkalemia Status: Acute Assessment and Plan: Secondary to SRI and patient was also on potassium supplementation and potassium-sparing diuretics Lokelma, IV fluids Insulin D50 Plan DVT prophylaxis -Coumadin Nutrition-advance diet Code Status -patient is DNR as per her POLST form/advance directive Total Critical Care Time - 40 minutes Due to a high probability of clinically significant, life threatening deterioration, the patient required my highest level of preparedness to intervene emergently and I personally spent this critical care time directly and personally managing the patient. This critical care time included obtaining a history; examining the patient; pulse oximetry; ordering and review of studies; arranging urgent treatm
[2022-03-03] MEDS: VASOPRESSIN INJ 100 UNITS in DEXTROSE 5% 95 ML IV CONT (10:49)
[2022-03-03] MEDS: SODIUM CHLORIDE 0.9% IV 1,000 ML 75 ML IV CONT (10:50)
[2022-03-03] MEDS: MAGNESIUM SULF 1 GM/D5W 100 ML 1 GM/100 ML BAG IVPB (10:53)
[2022-03-03] MEDS: INSULIN HUMAN REGULAR (*BKC) 100 UNITS/ML IV PUSH (10:55)
[2022-03-03] MEDS: SODIUM ZIRCONIUM CYCLOSILICATE 10 GM POWD.PACK PO ×2 (10:55→18:10)
[2022-03-03] MEDS: DEXTROSE 50% 25 GM/50 ML SYRINGE IV PUSH (10:55)
[2022-03-03] MEDS: ALBUMIN HUMAN 25% 25 GM/100 ML 100 ML IVPB ×2 (12:27→17:49)
--- NOTE | 2022-03-03 13:00 | PM.CNGS ---
Assessment and Plan Assessment and plan (1) Cellulitis of right lower extremity: Code(s): L03.115 - Cellulitis of right lower limb Status: Acute Assessment and Plan: S/p incarcerated right femoral hernia repair by Dr. Frederick on 02/08/22 with a LANNY drain still in place. No mesh placed during surgery. Incision is healing well without any signs of infection. LANNY drain with serosanguineous output. No recurrent hernia. No cellulitis on exam near the location of her surgery or the LANNY drain. This does not appear to be surgically related. There is some mild right lower leg cellulitis, but would be surprising for this to cause her septic shock. CT scan of the RLE showed no evidence of an abscess. Would continue with critical care and medical management with broad-spectrum IV antibiotics. No open wounds or draining areas that could be cultured. No indication for any surgical intervention. Will leave LANNY drain in place for now and continue to monitor. (2) Lymphedema: Code(s): I89.0 - Lymphedema, not elsewhere classified Status: Chronic Assessment and Plan: Chronic lymphedema bilaterally. (3) History of femoral hernia repair: Code(s): Z98.890 - Other specified postprocedural states; Z87.19 - Personal history of other diseases of the digestive system Status: Acute Assessment and Plan: S/p incarcerated right femoral hernia repair with Josiah's ligament repair by Dr. Frederick on 02/08/22. Repair intact with no recurrent hernia. See plan above. (4) Venous stasis ulcers: Code(s): I83.009 - Varicose veins of unspecified lower extremity with ulcer of unspecified site; L97.909 - Non-pressure chronic ulcer of unspecified part of unspecified lower leg with unspecified severity Status: Acute Assessment and Plan: Right lower leg with venous stasis ulcers likely the cause of the right lower leg cellulitis. Continue with local wound care, elevation, and limited on compression due to the large blisters on the right lower leg. (5) Septic shock: Code(s): A41.9 - Sepsis, unspecified organism; R65.21 - Severe sepsis with septic shock Status: Acute (6) Encephalopathy: Code(s): G93.40 - Encephalopathy, unspecified Status: Acute (7) Cirrhosis: Code(s): K74.60 - Unspecified cirrhosis of liver Status: Acute (8) Obesity (BMI 30-39.9): Code(s): E66.9 - Obesity, unspecified Status: Acute (9) Atrial fibrillation: Code(s): I48.91 - Unspecified atrial fibrillation Status: Chronic (10) manager terminal current use of anticoagulant: Code(s): Z79.01 - manager terminal (current) use of anticoagulants Status: Chronic Assessment and Plan: Warfarin on hold, INR 2.7. Plan I have discussed the patient's case and plan of care with Dr. Khan. Thank you for allowing us to see the patient in consultation and we will continue to follow along with you. History of Present Illness Consult details Consult date: 03/03/22 Reason for consult: other (Right femoral hernia repair on 02/08/[address] Frederick now with sepsis and right lower extremity cellulitis) Requesting physician: Elgin Morgan MD Narrative: This is an 87-year-old woman with a history of atrial fibrillation, cirrhosis, hepatic mass of unknown nature, and hypertension, who had an incarcerated right femoral hernia and underwent a Josiah's ligament repair by Dr. Frederick on 02/08/2022. She has been followed by Dr. Frederick in our office and a LANNY drain has remained in place. There has been a large amount of output, therefore it was continued even after he saw her in the office on 02/21/2022. This has been monitored and she has been residing at a care home facility. She presented to [facility] ER yesterday due to right lower extremity swelling. In the ER, they felt she had cellulitis of the right lower extremity and was found to be in septic shock and a KI. She was given IV fluids and started on broad-sp
[2022-03-03 13:03] LABS: Glucose Point of Care 104 mg/dl (65-105)
[2022-03-03] MEDS: HYDROCORTISONE SODIUM SUCCINATE 100 MG/2 ML VIAL IV PUSH ×2 (14:00→21:05)
[2022-03-03] MEDS: CENTRAL LINE FLUSH 10 ML IV PUSH ×3 (14:00→21:05)
[2022-03-03] MEDS: traMADol HCL (*CRX) 50 MG TABLET PO (14:01)
[2022-03-03] MEDS: NOREPINEPHRINE 8 MG/D5W 250 ML 8 MG/250 ML BAG 9.38 MG IV CONT (15:41)
[2022-03-03 18:12] LABS: Glucose Point of Care 171 mg/dl (65-105)
--- NOTE | 2022-03-03 18:56 | PC.NURSE ---
Called Dr. Morgan to advise Levophed has been titrated to 2 mcg/kg/min, while Vasopressin remains at a set rate of 0.03 units/min. Dr. Morgan advised to pause Vasopressin and to titrate Levophed to maintain an adequate MAP.
[2022-03-03] MEDS: HYDROcodone/acetaminophen (*CRX) 5-325 MG TABLET 1 TAB PO (21:02)
[2022-03-03 22:16] LABS: Glucose Point of Care 164 mg/dl (65-105)
[2022-03-04] VITALS (17 sets, daily range): BP systolic 102–133; BP diastolic 48–110; PULSE 65–86; RESP 11–19; TEMP 35.8–37; O2SAT 93–96; BMI 35.0
[2022-03-04] MEDS: SODIUM CHLORIDE 0.9% IV 1,000 ML 75 ML IV CONT (00:10)
[2022-03-04] MEDS: ALBUMIN HUMAN 25% 25 GM/100 ML 100 ML IVPB ×4 (00:15→17:02)
[2022-03-04] MEDS: HYDROCORTISONE SODIUM SUCCINATE 100 MG/2 ML VIAL IV PUSH ×3 (05:52→21:23)
[2022-03-04] MEDS: CENTRAL LINE FLUSH 10 ML IV PUSH ×4 (05:52→21:24)
[2022-03-04 06:03] LABS: INR 3.9; Prothrombin Time 37.3 Seconds (11.1-14.7)
[2022-03-04 06:06] LABS: Alanine Aminotransferase 77 U/L (6-35); Albumin Level 2.7 g/dL (3.5-5.1); Alkaline Phosphatase 104 U/L (38-126); Anion Gap 7 mmol/L (8-16); Aspartate Amino Transferase 199 U/L (14-36); Bilirubin,Total 3.6 mg/dL (0.2-1.3); Blood Urea Nitrogen 49 mg/dL (7-17); Calcium 7.9 mg/dL (8.4-10.2); Carbon Dioxide 26 mmol/L (22-30); Chloride 93 mmol/L (98-107); Estimated CRCL calculation 30 ml/min; Estimated Glomerular Filt Rate 29; Glucose 121 mg/dL (65-110); Magnesium 1.8 mg/dL (1.6-2.3); Potassium 4.8 mmol/L (3.4-5.0); Sodium 126 mmol/L (137-145)
[2022-03-04 06:07] LABS: Hematocrit 37.7 % (37.0-47.0); Hemoglobin 12.2 g/dL (12.0-15.0); Immature Platelet Fraction Pct 4.9 % (0.9-11.2); Mean Corpuscular HGB Conc 32.4 g/dl (32-36); Mean Corpuscular Hemoglobin 33.2 pg (26-34); Mean Corpuscular Volume 102.4 fl (80-100); Mean Platelet Volume 10.2 fl (7.4-10.4); Platelet Count Result 112 k/mm3 (150-375); Red Blood Count 3.68 M/mm3 (4.2-5.4); Red Cell Distribution Width 17.2 % (11.5-14.5); White Blood Count 11.2 K/mm3 (4.5-10.0)
[2022-03-04 07:52] LABS: Glucose Point of Care 105 mg/dl (65-105)
--- NOTE | 2022-03-04 08:03 | WPDINTPN ---
Progress Note: A&P Assessment and Plan (1) Septic shock: Code(s): A41.9 - Sepsis, unspecified organism; R65.21 - Severe sepsis with septic shock Status: Acute Assessment and Plan: Patient appears to have cellulitis of right lower leg. Right leg is swollen red and has blisters CT right lower extremity- ?Right lower limb subcutaneous edema and skin thickening, consistent with cellulitis. No abscess. Lower extremity Dopplers were negative for DVT General surgery following Patient received IV fluid bolus and cautious continuous hydration yesterday as patient is overall volume overload Continue Levophed titration to maintain mean arterial pressure Off vasopressin infusion Continue stress dose steroids Continue 25% albumin Blood culture sent in the ER and are pending Continue vancomycin and imipenem Her lactic acid level elevation may also be contributed secondary to decreased hepatic clearance as patient does have cirrhosis (2) Cellulitis of right lower extremity: Code(s): L03.115 - Cellulitis of right lower limb Status: Acute Assessment and Plan: See above Dopplers of bilateral lower extremities were negative for DVT done on 03/02 in the ER (3) SRI (acute kidney injury): Code(s): N17.9 - Acute kidney failure, unspecified Status: Acute Assessment and Plan: Likely multifactorial secondary to septic shock, intravascular volume depletion as patient was on diuretics, potassium supplement Patient was given cautious hydration on admission as patient is overall volume overloaded and third-spacing Now off IV fluids but albumin will be continued Monitor urine output electrolytes and creatinine CT abdomen pelvis done in the ER shows no hydronephrosis or stone Continue to Hold diuretics and Aldactone (4) Incarcerated inguinal hernia: Code(s): K40.30 - Unilateral inguinal hernia, with obstruction, without gangrene, not specified as recurrent Status: Acute Assessment and Plan: Status post surgery on 02/[address] with minimal output CT abdomen pelvis reviewed Surgery is following (5) Encephalopathy: Code(s): G93.40 - Encephalopathy, unspecified Status: Acute Assessment and Plan: Likely toxic metabolic encephalopathy Patient is now alert oriented x3 She follows commands and moves all 4 extremities (6) Atrial fibrillation: Code(s): I48.91 - Unspecified atrial fibrillation Status: Chronic Assessment and Plan: Currently ventricular rate is controlled Beta-blockers on hold due to shock INR is supra therapeutic but will hold Coumadin at this time (7) Cirrhosis: Code(s): K74.60 - Unspecified cirrhosis of liver Status: Acute Assessment and Plan: Radiologically and clinically patient appears to have cirrhosis Check ammonia level Continue to Hold Coumadin LFTs reviewed which is slightly worse (8) Elevated bilirubin: Code(s): R17 - Unspecified jaundice Status: Acute Assessment and Plan: Likely secondary to sepsis and cirrhosis Right upper quadrant ultrasound - ?Indeterminate liver mass which may be benign or malignant. Comparison with any prior imaging or follow-up MRI without and with contrast is recommended. Patient is status post cholecystectomy Monitor levels (9) Elevated brain natriuretic peptide (BNP) level: Code(s): R79.89 - Other specified abnormal findings of blood chemistry Status: Acute Assessment and Plan: Echo?shows right heart failure. 1. Complete two-dimensional, color flow and Doppler transthoracicechocardiogram is performed. ? 2. Left ventricular chamber dimension is mildly enlarged. ? 3. Left ventricular systolic function is normal, estimated at >70%. ? 4. There is mildly increased left ventricular wall thickness. ? 5. The left ventricular diastolic function is indeterminate. ? 6. Right ventricular systolic function is reduced.? TAPSE 1.2. ? 7. Left atrial
[2022-03-04] MEDS: PHYTONADIONE 2.5 MG TAB PO (08:30)
[2022-03-04] MEDS: SODIUM CHLORIDE 1 GM TABLET PO ×2 (08:31→17:02)
[2022-03-04 08:56] LABS: Ammonia 16 umol/L (9-30)
[2022-03-04] MEDS: SODIUM ZIRCONIUM CYCLOSILICATE 10 GM POWD.PACK PO ×2 (09:17→17:03)
--- NOTE | 2022-03-04 10:50 | PM.IMPN ---
Progress Note: A&P Assessment and Plan (1) Septic shock: Code(s): A41.9 - Sepsis, unspecified organism; R65.21 - Severe sepsis with septic shock Status: Acute Assessment and Plan: cellulitis of right lower leg. Right leg is swollen red and has blisters General surgery following continue IV antibiotics management per ICU (2) Cellulitis of right lower extremity: Code(s): L03.115 - Cellulitis of right lower limb Status: Acute Assessment and Plan: see above (3) SANKET (acute kidney injury): Code(s): N17.9 - Acute kidney failure, unspecified Status: Acute Assessment and Plan: Likely multifactorial secondary to septic shock, intravascular volume depletion as patient was on diuretics, potassium supplement monitor creatinine (4) Incarcerated inguinal hernia: Code(s): K40.30 - Unilateral inguinal hernia, with obstruction, without gangrene, not specified as recurrent Status: Acute Assessment and Plan: surgery following (5) Encephalopathy: Code(s): G93.40 - Encephalopathy, unspecified Status: Acute Assessment and Plan: Likely toxic metabolic encephalopathy monitor (6) Atrial fibrillation: Code(s): I48.91 - Unspecified atrial fibrillation Status: Chronic Assessment and Plan: Currently ventricular rate is controlled Beta-blockers on hold due to shock INR is supra therapeutic but will hold Coumadin at this time (7) Cirrhosis: Code(s): K74.60 - Unspecified cirrhosis of liver Status: Acute Assessment and Plan: monitor (8) Elevated bilirubin: Code(s): R17 - Unspecified jaundice Status: Acute Assessment and Plan: Monitor levels (9) Hyperkalemia: Code(s): E87.5 - Hyperkalemia Status: Acute Assessment and Plan: secondary to Sanket monitor (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 Breath sounds decrease on both bases Cardiac: RRR. Normal S1 S2. No murmurs Circulation: Both feet are cold but bilateral dorsalis pedis pulses are dopplerable Abdomen: Normal bowel sounds patient is morbidly obese Soft. NT. ND. LANNY drain in place in right lower quadrant Extremities: Bilateral extremities are swollen with edema and chronic venous stasis changes on both legs, right leg has patches of redness along with blisters filled with fluid, both legs are cold, area of redness is improved as compared to yesterday : Degroot in place Neurologic: Follows commands. Moves all 4 extremities PERRL AO x3 but confused Skin: See above Objective Data Vital Signs Vital Signs: Vital Signs - 24 hr 03/03/22 12:26 03/03/22 12:41 03/03/22 12:00 Temperature Pulse Rate 71 83 79 Respiratory Rate Blood Pressure 133/57 L 126/61 Pulse Oximetry Oxygen Delivery Oxygen Flow Rate 03/03/22 12:00 03/03/22 12:00 03/03/22 13:46 Temperature Pulse Rate 77 94 91 Respiratory Rate 18 17 Blood Pressure 124/68 121/62 Pulse Oximetry 95 95 Oxygen Delivery Nasal Cannula Oxygen Flow Rate 1 03/03/22 14:00 03/03/22 14:00 03/03/22 14:25 Temperature Pulse Rate 88 94 84 Respiratory Rate 16 Blood Pressure 120/68 120/68 Pulse Oximetry 93 Oxygen Delivery Oxygen Flow Rate 03/03/22 15:41 03/03/22 15:41 03/03/22 16:00 Temperature Pulse Rate 84 84 95 Respiratory Rate 22 H Blood Pressure 121/81 121/81 Pulse Oximetry 85 L Oxygen Delivery Room Air Oxygen Flow Rate 03/03/22 16:00 03/03/22 18:00 03/03/22 18:49 Temperature Pulse Rate 80 67 80 Respiratory Rate Blood Pressure 104/57 L Pulse Oximetry Ox
[2022-03-04 11:32] LABS: Glucose Point of Care 136 mg/dl (65-105)
[2022-03-04] MEDS: HYDROcodone/acetaminophen (*CRX) 5-325 MG TABLET 1 TAB PO ×2 (15:01→21:23)
[2022-03-04 17:03] LABS: Glucose Point of Care 121 mg/dl (65-105)
[2022-03-04 22:36] LABS: Glucose Point of Care 146 mg/dl (65-105)
[2022-03-05] VITALS (11 sets, daily range): BP systolic 109–141; BP diastolic 57–86; PULSE 57–72; RESP 9–19; TEMP 36.3–37.2; O2SAT 94–97
[2022-03-05] MEDS: ALBUMIN HUMAN 25% 25 GM/100 ML 100 ML IVPB ×2 (00:08→06:33)
[2022-03-05] MEDS: traMADol HCL (*CRX) 50 MG TABLET PO ×2 (00:09→19:53)
[2022-03-05] MEDS: HYDROcodone/acetaminophen (*CRX) 5-325 MG TABLET 1 TAB PO (01:40)
[2022-03-05] MEDS: CENTRAL LINE FLUSH 10 ML IV PUSH ×4 (06:33→23:33)
[2022-03-05] MEDS: HYDROCORTISONE SODIUM SUCCINATE 100 MG/2 ML VIAL IV PUSH (06:33)
[2022-03-05 06:55] LABS: Hematocrit 36.3 % (37.0-47.0); Hemoglobin 11.8 g/dL (12.0-15.0); Immature Platelet Fraction Pct 6.7 % (0.9-11.2); Mean Corpuscular HGB Conc 32.5 g/dl (32-36); Mean Corpuscular Volume 101.4 fl (80-100); Mean Platelet Volume 10.3 fl (7.4-10.4); Platelet Count Result 80 k/mm3 (150-375); Red Blood Count 3.58 M/mm3 (4.2-5.4); White Blood Count 10.7 K/mm3 (4.5-10.0)
[2022-03-05 07:18] LABS: INR 2.3; Prothrombin Time 24.3 Seconds (11.1-14.7)
[2022-03-05 07:21] LABS: Alanine Aminotransferase 107 U/L (6-35); Albumin Level 3.2 g/dL (3.5-5.1); Alkaline Phosphatase 107 U/L (38-126); Anion Gap 7 mmol/L (8-16); Aspartate Amino Transferase 246 U/L (14-36); Bilirubin,Total 4.2 mg/dL (0.2-1.3); Blood Urea Nitrogen 55 mg/dL (7-17); Calcium 8.5 mg/dL (8.4-10.2); Carbon Dioxide 25 mmol/L (22-30); Chloride 90 mmol/L (98-107); Estimated CRCL calculation 39 ml/min; Estimated Glomerular Filt Rate 39; Glucose 110 mg/dL (65-110); Magnesium 1.9 mg/dL (1.6-2.3); Phosphorus 3.2 mg/dL (2.5-4.5); Potassium 4.4 mmol/L (3.4-5.0); Sodium 122 mmol/L (137-145)
[2022-03-05] MEDS: SODIUM CHLORIDE 500 MG TABLET PO (09:09)
--- NOTE | 2022-03-05 09:11 | WPDINTPN ---
Progress Note: A&P Assessment and Plan (1) Septic shock: Code(s): A41.9 - Sepsis, unspecified organism; R65.21 - Severe sepsis with septic shock Status: Acute Assessment and Plan: Secondary to cellulitis of right lower leg. Right leg is swollen red and has blisters CT right lower extremity- ?Right lower limb subcutaneous edema and skin thickening, consistent with cellulitis. No abscess. Lower extremity Dopplers were negative for DVT General surgery following Patient received IV fluid bolus and cautious continuous hydration yesterday as patient is overall volume overload She was Levophed and vasopressin titration to maintain mean arterial pressure Off vasopressors now Will discontinue stress dose steroids Will discontinue 25% albumin Blood culture sent in the ER and are pending Urine culture grew Enterococcus which was sensitive to imipenem Continue vancomycin and imipenem (2) Cellulitis of right lower extremity: Code(s): L03.115 - Cellulitis of right lower limb Status: Acute Assessment and Plan: See above Dopplers of bilateral lower extremities were negative for DVT done on 03/02 in the ER (3) SRI (acute kidney injury): Code(s): N17.9 - Acute kidney failure, unspecified Status: Acute Assessment and Plan: Likely multifactorial secondary to septic shock, intravascular volume depletion as patient was on diuretics, potassium supplement Patient was given cautious hydration on admission as patient is overall volume overloaded and third-spacing Now off IV fluids Urine output and creatinine is improving Will discontinue albumin Monitor urine output electrolytes and creatinine CT abdomen pelvis done in the ER shows no hydronephrosis or stone Continue to Hold diuretics and Aldactone (4) Incarcerated inguinal hernia: Code(s): K40.30 - Unilateral inguinal hernia, with obstruction, without gangrene, not specified as recurrent Status: Acute Assessment and Plan: Status post surgery on 02/[address] with minimal output CT abdomen pelvis reviewed Surgery is following (5) Encephalopathy: Code(s): G93.40 - Encephalopathy, unspecified Status: Acute Assessment and Plan: Likely toxic metabolic encephalopathy Patient is now alert oriented x3 She follows commands and moves all 4 extremities (6) Atrial fibrillation: Code(s): I48.91 - Unspecified atrial fibrillation Status: Chronic Assessment and Plan: Currently ventricular rate is controlled Beta-blockers on hold due to shock INR is in therapeutic and will resume Coumadin (7) Cirrhosis: Code(s): K74.60 - Unspecified cirrhosis of liver Status: Acute Assessment and Plan: Radiologically and clinically patient appears to have cirrhosis Normal ammonia level Resume Coumadin LFTs reviewed which is slightly worse (8) Elevated bilirubin: Code(s): R17 - Unspecified jaundice Status: Acute Assessment and Plan: Likely secondary to sepsis and cirrhosis Right upper quadrant ultrasound - ?Indeterminate liver mass which may be benign or malignant. Comparison with any prior imaging or follow-up MRI without and with contrast is recommended. Patient is status post cholecystectomy Monitor levels (9) Elevated brain natriuretic peptide (BNP) level: Code(s): R79.89 - Other specified abnormal findings of blood chemistry Status: Acute Assessment and Plan: Echo?shows right heart failure. 1. Complete two-dimensional, color flow and Doppler transthoracicechocardiogram is performed. ? 2. Left ventricular chamber dimension is mildly enlarged. ? 3. Left ventricular systolic function is normal, estimated at >70%. ? 4. There is mildly increased left ventricular wall thickness. ? 5. The left ventricular diastolic function is indeterminate. ? 6. Right ventricular systolic function is reduced.? TAPSE 1.2. ? 7. Left atrial chamber dimension is severely e
[2022-03-05 09:16] LABS: Glucose Point of Care 121 mg/dl (65-105)
[2022-03-05 12:18] LABS: Glucose Point of Care 129 mg/dl (65-105)
--- NOTE | 2022-03-05 12:34 | PM.IMPN ---
Progress Note: A&P Assessment and Plan (1) Septic shock: Code(s): A41.9 - Sepsis, unspecified organism; R65.21 - Severe sepsis with septic shock Status: Acute Assessment and Plan: cellulitis of right lower leg. Right leg is swollen red and has blisters General surgery following continue IV antibiotics (2) Cellulitis of right lower extremity: Code(s): L03.115 - Cellulitis of right lower limb Status: Acute Assessment and Plan: see above (3) SANKET (acute kidney injury): Code(s): N17.9 - Acute kidney failure, unspecified Status: Acute Assessment and Plan: Likely multifactorial secondary to septic shock, intravascular volume depletion as patient was on diuretics, potassium supplement monitor creatinine (4) Incarcerated inguinal hernia: Code(s): K40.30 - Unilateral inguinal hernia, with obstruction, without gangrene, not specified as recurrent Status: Acute Assessment and Plan: surgery following (5) Encephalopathy: Code(s): G93.40 - Encephalopathy, unspecified Status: Acute Assessment and Plan: Likely toxic metabolic encephalopathy monitor (6) Atrial fibrillation: Code(s): I48.91 - Unspecified atrial fibrillation Status: Chronic Assessment and Plan: Currently ventricular rate is controlled Beta-blockers on hold due to shock INR is supra therapeutic but will hold Coumadin at this time (7) Cirrhosis: Code(s): K74.60 - Unspecified cirrhosis of liver Status: Acute Assessment and Plan: monitor LFTs (8) Elevated bilirubin: Code(s): R17 - Unspecified jaundice Status: Acute Assessment and Plan: Monitor levels (9) Hyperkalemia: Code(s): E87.5 - Hyperkalemia Status: Acute Assessment and Plan: secondary to Sanket monitor (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 Chronic hyponatremia baseline sodium around 130-132. If sodium continues to fall will consult Nephrology Subjective Date/time seen: 03/05/22 12:34 No complaints Exam Narrative: General: Pt is alert awake and in NAD Lungs/Chest: Trachea central Clear BS B/L, No crackles or wheezing. Breath sounds decrease on both bases Cardiac: RRR. Normal S1 S2. No murmurs Circulation: Both feet are cold but bilateral dorsalis pedis pulses are dopplerable Abdomen: Normal bowel sounds patient is morbidly obese Soft. NT. ND. LANNY drain in place in right lower quadrant Extremities: Bilateral extremities are swollen with edema and chronic venous stasis changes on both legs, right leg has patches of redness along with dark blisters filled with fluid, both legs are cold, area of redness is improved as compared to yesterday : Degroot in place Neurologic: Follows commands. Moves all 4 extremities PERRL AO x3 but confused Skin: See above Objective Data Vital Signs Vital Signs: Vital Signs - 24 hr 03/04/22 14:00 03/04/22 14:00 03/04/22 16:00 Temperature Pulse Rate 74 72 65 Respiratory Rate 14 Blood Pressure 114/76 Pulse Oximetry 96 Oxygen Delivery 03/04/22 16:00 03/04/22 16:00 03/04/22 18:00 Temperature 97.9 F Pulse Rate 65 65 74 Respiratory Rate 12 12 Blood Pressure 128/110 H Pulse Oximetry 93 93 Oxygen Delivery Room Air 03/04/22 18:00 03/04/22 20:00 03/04/22 20:00 Temperature 97.6 F Pulse Rate 74 71 Respiratory Rate 15 15 Blood Pressure 105/87 112/64 Pulse Oximetry 94 93 Oxygen Delivery Room Air 03/04/22 22:00 03/04/22 20:00 03/04/22 22:00 Temperature Pulse Rate 71 77 71 Respiratory Rate 12 Blood Pressure 133/62 Pulse Oximetry 95 Oxygen D
[2022-03-05 17:09] LABS: Glucose Point of Care 131 mg/dl (65-105)
[2022-03-05] MEDS: SODIUM CHLORIDE 1 GM TABLET PO (18:10)
[2022-03-05 18:29] LABS: Glucose Point of Care 142 mg/dl (65-105)
[2022-03-05] MEDS: WARFARIN (*PBKC) 3 MG TABLET PO (19:48)
[2022-03-05 20:05] LABS: Glucose Point of Care 138 mg/dl (65-105)
[2022-03-05 23:47] LABS: Vancomycin Trough 14.9 ug/mL (10.0-20.0)
[2022-03-06] VITALS (15 sets, daily range): BP systolic 122–137; BP diastolic 65–86; PULSE 61–85; RESP 9–20; TEMP 36.2–36.7; O2SAT 95–100
[2022-03-06] MEDS: CENTRAL LINE FLUSH 10 ML IV PUSH ×4 (05:55→21:29)
[2022-03-06 06:26] LABS: Hematocrit 39.9 % (37.0-47.0); Hemoglobin 13.1 g/dL (12.0-15.0); Immature Platelet Fraction Pct 7.2 % (0.9-11.2); Mean Corpuscular HGB Conc 32.8 g/dl (32-36); Mean Corpuscular Hemoglobin 32.8 pg (26-34); Mean Corpuscular Volume 99.8 fl (80-100); Platelet Count Result 80 k/mm3 (150-375); Red Cell Distribution Width 16.8 % (11.5-14.5); White Blood Count 12.1 K/mm3 (4.5-10.0)
[2022-03-06 06:37] LABS: Alanine Aminotransferase 88 U/L (6-35); Albumin Level 3.2 g/dL (3.5-5.1); Alkaline Phosphatase 128 U/L (38-126); Anion Gap 11 mmol/L (8-16); Aspartate Amino Transferase 135 U/L (14-36); Bilirubin,Total 3.4 mg/dL (0.2-1.3); Blood Urea Nitrogen 56 mg/dL (7-17); Calcium 8.8 mg/dL (8.4-10.2); Carbon Dioxide 25 mmol/L (22-30); Chloride 94 mmol/L (98-107); Estimated CRCL calculation 42 ml/min; Estimated Glomerular Filt Rate 43; Glucose 103 mg/dL (65-110); Magnesium 2.2 mg/dL (1.6-2.3); Phosphorus 2.7 mg/dL (2.5-4.5); Potassium 3.9 mmol/L (3.4-5.0); Sodium 130 mmol/L (137-145)
[2022-03-06 07:32] LABS: INR 1.6; Prothrombin Time 18.7 Seconds (11.1-14.7)
[2022-03-06 08:17] LABS: Glucose Point of Care 92 mg/dl (65-105)
--- NOTE | 2022-03-06 09:53 | PM.IMPN ---
Progress Note: A&P Assessment and Plan (1) Septic shock: Code(s): A41.9 - Sepsis, unspecified organism; R65.21 - Severe sepsis with septic shock Status: Acute Assessment and Plan: cellulitis of right lower leg. Right leg is swollen red and has blisters General surgery following continue IV antibiotics (2) Cellulitis of right lower extremity: Code(s): L03.115 - Cellulitis of right lower limb Status: Acute Assessment and Plan: see above (3) SANKET (acute kidney injury): Code(s): N17.9 - Acute kidney failure, unspecified Status: Acute Assessment and Plan: Likely multifactorial secondary to septic shock, intravascular volume depletion as patient was on diuretics, potassium supplement monitor creatinine (4) Incarcerated inguinal hernia: Code(s): K40.30 - Unilateral inguinal hernia, with obstruction, without gangrene, not specified as recurrent Status: Acute Assessment and Plan: surgery following (5) Encephalopathy: Code(s): G93.40 - Encephalopathy, unspecified Status: Acute Assessment and Plan: Likely toxic metabolic encephalopathy monitor (6) Atrial fibrillation: Code(s): I48.91 - Unspecified atrial fibrillation Status: Chronic Assessment and Plan: Currently ventricular rate is controlled Beta-blockers on hold due to shock Monitor INR. 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 Chronic hyponatremia baseline sodium around 130-132. If sodium continues to fall will consult Nephrology Subjective Date/time seen: 03/06/22 09:53 No complaints Exam Narrative: General: Pt is alert awake and in NAD Lungs/Chest: Trachea central Clear BS B/L, No crackles or wheezing. Breath sounds decrease on both bases Cardiac: RRR. Normal S1 S2. No murmurs Circulation: Both feet are cold but bilateral dorsalis pedis pulses are dopplerable Abdomen: Normal bowel sounds patient is morbidly obese Soft. NT. ND. LANNY drain in place in right lower quadrant Extremities: Bilateral extremities are swollen with edema and chronic venous stasis changes on both legs, right leg has patches of redness along with dark blisters filled with fluid, both legs are cold, area of redness is improved as compared to yesterday : Degroot in place Neurologic: Follows commands. Moves all 4 extremities PERRL AO x3 but confused Skin: See above Objective Data Vital Signs Vital Signs: Vital Signs - 24 hr 03/05/22 12:00 03/05/22 12:00 03/05/22 12:00 Temperature 98 F Pulse Rate 68 68 68 Respiratory Rate 17 17 Blood Pressure 118/65 Pulse Oximetry 94 94 Oxygen Delivery Room Air 03/05/22 16:00 03/05/22 14:00 03/05/22 16:00 Temperature Pulse Rate 68 67 66 Respiratory Rate 17 Blood Pressure Pulse Oximetry 94 Oxygen Delivery Room Air 03/05/22 16:00 03/05/22 18:00 03/05/22 20:00 Temperature 98.9 F 97.4 F L Pulse Rate 66 64 72 Respiratory Rate 14 19 Blood Pressure 132/78 141/86 H Pulse Oximetry 94 94 Oxygen Delivery 03/05/22 20:00 03/06/22 00:00 03/06/22 00:00 Temperature 97.6 F Pulse Rate 65 Respiratory Rate 10 L Blood Pressure 132/86 Pulse Oximetry 100 Oxygen Delivery Room Air [facility]
[2022-03-06] MEDS: SODIUM CHLORIDE 1 GM TABLET PO ×2 (09:59→17:29)
[2022-03-06 12:14] LABS: Glucose Point of Care 150 mg/dl (65-105)
[2022-03-06] MEDS: traMADol HCL (*CRX) 50 MG TABLET PO ×2 (15:12→21:25)
[2022-03-06 17:15] LABS: Glucose Point of Care 78 mg/dl (65-105)
[2022-03-06] MEDS: WARFARIN (*PBKC) 3 MG TABLET PO (17:29)
[2022-03-06 20:05] LABS: Glucose Point of Care 99 mg/dl (65-105)
[2022-03-06] MEDS: polyethylene glycoL 3350 17 GM POWD.PACK PO (21:26)
[2022-03-06] MEDS: HYDROcodone/acetaminophen (*CRX) 5-325 MG TABLET 1 TAB PO (23:14)
[2022-03-07] VITALS (13 sets, daily range): BP systolic 129–158; BP diastolic 64–85; PULSE 70–97; RESP 18–24; TEMP 36.1–36.6; O2SAT 96–100; BMI 11.0
[2022-03-07] MEDS: CENTRAL LINE FLUSH 10 ML IV PUSH ×4 (05:14→23:14)
[2022-03-07 05:28] LABS: Hematocrit 42.7 % (37.0-47.0); Hemoglobin 14.1 g/dL (12.0-15.0); Immature Platelet Fraction Pct 5.2 % (0.9-11.2); Mean Corpuscular Hemoglobin 32.9 pg (26-34); Mean Corpuscular Volume 99.5 fl (80-100); Mean Platelet Volume 10.3 fl (7.4-10.4); Platelet Count Result 93 k/mm3 (150-375); Red Blood Count 4.29 M/mm3 (4.2-5.4); Red Cell Distribution Width 17.8 % (11.5-14.5); White Blood Count 8.4 K/mm3 (4.5-10.0)
[2022-03-07 05:35] LABS: Alanine Aminotransferase 64 U/L (6-35); Albumin Level 2.6 g/dL (3.5-5.1); Alkaline Phosphatase 142 U/L (38-126); Anion Gap 7 mmol/L (8-16); Aspartate Amino Transferase 77 U/L (14-36); Bilirubin,Total 4.3 mg/dL (0.2-1.3); Blood Urea Nitrogen 55 mg/dL (7-17); Calcium 8.6 mg/dL (8.4-10.2); Carbon Dioxide 28 mmol/L (22-30); Chloride 97 mmol/L (98-107); Estimated CRCL calculation 46 ml/min; Estimated Glomerular Filt Rate 47; Glucose 82 mg/dL (65-110); Magnesium 2.1 mg/dL (1.6-2.3); Phosphorus 2.3 mg/dL (2.5-4.5); Potassium 3.7 mmol/L (3.4-5.0); Sodium 132 mmol/L (137-145)
[2022-03-07 05:42] LABS: INR 1.7; Prothrombin Time 19.5 Seconds (11.1-14.7)
[2022-03-07] MEDS: polyethylene glycoL 3350 17 GM POWD.PACK PO (09:56)
[2022-03-07] MEDS: SODIUM CHLORIDE 1 GM TABLET PO ×2 (09:56→17:44)
--- NOTE | 2022-03-07 10:08 | PM.IMPN ---
Progress Note: A&P Assessment and Plan (1) Right shoulder pain: Code(s): M25.511 - Pain in right shoulder Status: Acute Assessment and Plan: Will get x-ray. Does have some right upper extremity weakness. Will get CT of the head as well. (2) Septic shock: Code(s): A41.9 - Sepsis, unspecified organism; R65.21 - Severe sepsis with septic shock Status: Acute Assessment and Plan: cellulitis of right lower leg. Right leg is swollen red and has blisters General surgery following continue IV antibiotics -should be able to switch to oral tomorrow or the next day (3) Cellulitis of right lower extremity: Code(s): L03.115 - Cellulitis of right lower limb Status: Acute Assessment and Plan: see above (4) SANKET (acute kidney injury): Code(s): N17.9 - Acute kidney failure, unspecified Status: Acute Assessment and Plan: Creatinine 1.1 (5) Incarcerated inguinal hernia: Code(s): K40.30 - Unilateral inguinal hernia, with obstruction, without gangrene, not specified as recurrent Status: Acute Assessment and Plan: surgery following as needed but nothing surgical at this time (6) Encephalopathy: Code(s): G93.40 - Encephalopathy, unspecified Status: Acute Assessment and Plan: Improved (7) Atrial fibrillation: Code(s): I48.91 - Unspecified atrial fibrillation Status: Chronic Assessment and Plan: Currently ventricular rate is controlled Beta-blockers on hold due to shock Monitor INR. 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 When asked to move her right shoulder she is unable to do so. She does appear to be slightly weak in her right upper extremity. She is able to move her right lower extremity. Complaining of some pain in her right foot. Exam Narrative: General: Pt is alert awake and in NAD Lungs/Chest: Trachea central Clear BS B/L, No crackles or wheezing. Breath sounds decrease on both bases Cardiac: RRR. Normal S1 S2. No murmurs Circulation: Both feet are cold but bilateral dorsalis pedis pulses are dopplerable Abdomen: Normal bowel sounds patient is morbidly obese Soft. NT. ND. LANNY drain in place in right lower quadrant Extremities: Bilateral extremities are swollen with edema and chronic venous stasis changes on both legs, right leg has patches of redness along with dark blisters filled with fluid, both legs are cold, area of redness is improved as compared to yesterday : Degroot in place Neurologic: Follows commands. Moves all 4 extremities PERRL AO x3 but confused Skin: See above Objective Data Vital Signs Vital Signs: Vital Signs - 24 hr 03/06/22 12:00 03/06/22 12:00 03/06/22 12:00 Temperature 97.8 F Pulse Rate 74 68 Respiratory Rate 20 Blood Pressure 137/79 Pulse Oximetry 100 95 Oxygen Delivery Room Air 03/06/22 14:00 03/06/22 16:00 03/06/22 16:00 Temperature Pulse Rate 77 70 Respiratory Rate Blood Pressure Pulse Oximetry Oxygen Delivery Room Air 03/06/22 16:00 03/06/22 18:00 03/06/22 19:50 Temperature 97.1 F L 98.0 F Pulse Rate 80 85 73 Res
--- NOTE | 2022-03-07 11:52 | PCNFU ---
Nutrition Follow-Up Complete: Increased nutrient needs related to wound healing as evidenced by a deep tissue pressure injury to back Goal:Wound healing PO intake to remain 75% or greater, pt is progressing towards goal. Continue with same goal. Pt current nutrition is regular, 1200ml fluid restrictions. Nutrition recommendation: Continue with current plan of care. Last recorded weight is 116.4 kg - up 6kg from admission. Bowel Motility: no BM reported, given miralax Labs Reviewed: Alb:2.6, NA:132, GFR:47, BUN:55, Cr:1.1 Meds Noted: Novolog, coumadin Skin: Stage II to back Additional Notes: Pt diet is changed to regular, 1200ml fluid restriction noted. 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 PANFILO BID ordered for wound healing. Agree with diet orders. Monitor intake, wt, labs. Follow up in 7 days.
[2022-03-07] MEDS: HYDROcodone/acetaminophen (*CRX) 5-325 MG TABLET 1 TAB PO ×2 (12:25→20:42)
--- NOTE | 2022-03-07 14:06 | WPDNEURCNPN ---
Assessment and Plan Assessment and plan (1) Right arm weakness: Code(s): R29.898 - Other symptoms and signs involving the musculoskeletal system Status: Acute Assessment and Plan: Ms Solo is an 87 year old female with a history of atrial fibrillation currently admitted for RLE cellulitis. Developed RUE pain/weakness over the past few days. Differential includes stroke given patients history of atrial fibrillation, although I think a lot of the limitation in movement of her RUE is due to pain rather than weakness. Cervical cord lesion is also a possibility, but again, this would cause more weakness than pain. Her central line is on the right side, I am not sure if this is causing her to be uncomfortable? - Recommend XR of whole RUE since pain seems to extend to elbow and forearm - I discussed with patient and daughter that while my suspicion is low, I would recommend MRI brain w/o contrast to to rule out a possible stroke and MRI cervical spine to exclude spinal lesion. They are hesitant at this time since she would not be able to tolerate it. I let them know that anxiolytics are available if they are willing to go through with it. - Recommend PT/OT Consult date: 03/07/22 Time Seen: 14:07 Reason for consult: RUE weakness HPI: Ana Solo is a 87 year old female with a history of atrial fibrilation (on warfarin), arhtritis, HTN, currently admitted due to RLE cellulitis complicated by sepsis and SRI. She develoed RUE pain about two days ago. Patient is unable to move the right arm very much and she is not sure if this is related to pain or true weakness. She had right shoulder XR which was negative. CT head was negative. Her INR is 1.7. Her WBC today was normal. She has not had any fevers. She is on Iminpenem and vancomycin. She is also receiving pain medications. Per patient the pain is not only limited to the left shoulder but also to the left arm, especially the elbow. She denies any sensory loss. She denies any speech changes. 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 Review of Systems Constitutional: Constitutional: Reports weakness Eyes: Comments: blindness ENT: Reports Normal hearing present Cardiovascular: Cardiovascular: Reports no additional cardiovascular complaints Respiratory: Respiratory: Reports no additional respiratory complaints Gastrointestinal: Gastrointestinal: Reports no additional gastrointestinal complaints Genitourinary: Genitourinary: Reports no additional female genitourinary complaints Musculoskeletal: Musculoskeletal: Reports arthralgias and Reports joint swelling Integumentary/Breasts: Comments: cellulitis Neurologic: Reports as per HPI Psychiatric: Psychiatric: Reports anxiety PMFSH Past Medical History Medical History Arthritis Atrial fibrillation Essential and other specified forms of tremor Hypertension Unspecified fracture of right femur, sequela Surgical History Surgical History History of cholecystectomy Open cholecystectomy History of femoral hernia repair Incarcerated right femoral hernia repair with Josiah's ligament repair by Dr. Frederick on 02/08/22 History of joint replacement History of knee replacement History of vein stripping Family History Family History Mother Acute myocardial infarction Abdominal aneurysm Social History Social History Social History: Patient lives at home with her , but has been in [facility] for rehab since a right femur fracture in November of 2021. Smoking status: Former smoker Alcohol intake: former Drinks per week: 7 Substance use: never Substance use type: does not use Gender identity (if verbalized by the patient): Female Spiritual care concerns: No Meds Home Medications and Al
[2022-03-07] MEDS: traMADol HCL (*CRX) 50 MG TABLET PO (14:39)
[2022-03-07] MEDS: WARFARIN (*PBKC) 3 MG TABLET PO (17:44)
[2022-03-08] VITALS (12 sets, daily range): BP systolic 128–152; BP diastolic 68–75; PULSE 75–115; RESP 16–22; TEMP 36.1–36.6; O2SAT 94–100
[2022-03-08] MEDS: CENTRAL LINE FLUSH 10 ML IV PUSH ×4 (06:27→23:02)
[2022-03-08 08:05] LABS: Hemoglobin 14.4 g/dL (12.0-15.0); Immature Platelet Fraction Pct 6.5 % (0.9-11.2); Mean Corpuscular HGB Conc 32.7 g/dl (32-36); Mean Corpuscular Hemoglobin 32.7 pg (26-34); Mean Corpuscular Volume 99.8 fl (80-100); Mean Platelet Volume 10.6 fl (7.4-10.4); Platelet Count Result 88 k/mm3 (150-375); Red Blood Count 4.41 M/mm3 (4.2-5.4)
[2022-03-08 08:20] LABS: Alanine Aminotransferase 43 U/L (6-35); Albumin Level 2.5 g/dL (3.5-5.1); Alkaline Phosphatase 143 U/L (38-126); Anion Gap 8 mmol/L (8-16); Aspartate Amino Transferase 52 U/L (14-36); Bilirubin,Total 5.6 mg/dL (0.2-1.3); Blood Urea Nitrogen 45 mg/dL (7-17); Calcium 8.5 mg/dL (8.4-10.2); Carbon Dioxide 28 mmol/L (22-30); Chloride 96 mmol/L (98-107); Estimated CRCL calculation 61 ml/min; Estimated Glomerular Filt Rate > 60; Glucose 70 mg/dL (65-110); Magnesium 2.1 mg/dL (1.6-2.3); Phosphorus 2.6 mg/dL (2.5-4.5); Potassium 3.9 mmol/L (3.4-5.0); Sodium 132 mmol/L (137-145)
[2022-03-08] MEDS: SODIUM CHLORIDE 1 GM TABLET PO ×2 (09:37→17:53)
[2022-03-08] MEDS: traMADol HCL (*CRX) 50 MG TABLET PO ×2 (09:41→17:53)
--- NOTE | 2022-03-08 12:12 | PM.IMPN ---
Progress Note: A&P Assessment and Plan (1) Right shoulder pain: Code(s): M25.511 - Pain in right shoulder Status: Acute Assessment and Plan: X-ray showed right shoulder osteoarthritis. Appreciate Neurology consult for weakness. CT scan of the head negative. Recommended MRI but patient refused. (2) Septic shock: Code(s): A41.9 - Sepsis, unspecified organism; R65.21 - Severe sepsis with septic shock Status: Acute Assessment and Plan: cellulitis of right lower leg. Right leg is swollen red and has blisters General surgery following continue IV antibiotics -should be able to switch to oral tomorrow or the next day (3) Cellulitis of right lower extremity: Code(s): L03.115 - Cellulitis of right lower limb Status: Acute Assessment and Plan: see above (4) SANKET (acute kidney injury): Code(s): N17.9 - Acute kidney failure, unspecified Status: Acute Assessment and Plan: Creatinine 1.1 (5) Incarcerated inguinal hernia: Code(s): K40.30 - Unilateral inguinal hernia, with obstruction, without gangrene, not specified as recurrent Status: Acute Assessment and Plan: surgery following as needed but nothing surgical at this time (6) Encephalopathy: Code(s): G93.40 - Encephalopathy, unspecified Status: Acute Assessment and Plan: Improved (7) Atrial fibrillation: Code(s): I48.91 - Unspecified atrial fibrillation Status: Chronic Assessment and Plan: Currently ventricular rate is controlled Beta-blockers on hold due to shock Monitor INR. 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 Subjective Date/time seen: 03/08/22 no new complaints. Still unable to move her right arm and right shoulder. Patient is refusing MRI of her brain. Exam Narrative: General: Pt is alert awake and in NAD Lungs/Chest: Trachea central Clear BS B/L, No crackles or wheezing. Breath sounds decrease on both bases Cardiac: RRR. Normal S1 S2. No murmurs Circulation: Both feet are cold but bilateral dorsalis pedis pulses are dopplerable Abdomen: Normal bowel sounds patient is morbidly obese Soft. NT. ND. LANNY drain in place in right lower quadrant Extremities: Bilateral extremities are swollen with edema and chronic venous stasis changes on both legs, right leg has patches of redness along with dark blisters filled with fluid, both legs are cold, area of redness is improved as compared to yesterday : Deg[place] in place Neurologic: Follows commands. Moves all 4 extremities PERRL AO x3 but confused Skin: See above Objective Data Vital Signs Vital Signs: Vital Signs - 24 hr 03/07/22 14:00 03/07/22 16:00 03/07/22 16:00 Temperature 97.4 F L Pulse Rate 85 84 75 Respiratory Rate 24 H Blood Pressure 143/64 H Pulse Oximetry 97 Oxygen Delivery 03/07/22 16:00 03/07/22 18:00 03/07/22 19:55 Temperature 97.9 F Pulse Rate 96 97 Respiratory Rate 20 Blood Pressure 158/70 H Pulse Oximetry 100 Oxygen Delivery Room Air 03/07/22 20:00 03/07/22 20:00 03/07/22 23:21 Temperature 97.2 F L Pulse Rate 87 87 86 Respiratory Rate 20 18 Blood Pressure 148/85
[2022-03-08] MEDS: WARFARIN (*PBKC) 3 MG TABLET PO (17:54)
[2022-03-08] MEDS: HYDROcodone/acetaminophen (*CRX) 5-325 MG TABLET 1 TAB PO (20:28)
[2022-03-09] VITALS (14 sets, daily range): BP systolic 120–148; BP diastolic 63–85; PULSE 70–91; RESP 16–20; TEMP 36.1–36.9; O2SAT 98–100; BMI 10.0
[2022-03-09] MEDS: CENTRAL LINE FLUSH 10 ML IV PUSH ×4 (05:52→23:05)
[2022-03-09] MEDS: SODIUM CHLORIDE 1 GM TABLET PO ×2 (08:28→18:00)
[2022-03-09] MEDS: HYDROcodone/acetaminophen (*CRX) 5-325 MG TABLET 1 TAB PO ×2 (10:46→20:14)
--- NOTE | 2022-03-09 15:23 | PM.IMPN ---
Progress Note: A&P Assessment and Plan (1) Right shoulder pain: Code(s): M25.511 - Pain in right shoulder Status: Acute Assessment and Plan: X-ray showed right shoulder osteoarthritis. Appreciate Neurology consult for weakness. CT scan of the head negative. Neuro recommended MRI of the brain and c-spine but patient refused due to claustrophobia She was offered benzodiazepines but she refused. Continue PT. will add OT. Increase activity. (2) Septic shock: Code(s): A41.9 - Sepsis, unspecified organism; R65.21 - Severe sepsis with septic shock Status: Acute Assessment and Plan: Patient developed septic shock secondary to cellulitis of the right lower extremity. CT the right lower extremity shows subcutaneous edema and skin thickening consistent with cellulitis but no abscess. Lower extremity venous Dopplers were negative for DVT. Patient was on Levophed and vasopressin and these were able to be weaned off. She was on stress dose steroids these also been stopped. She remains on vancomycin and imipenem. Will continue treatment through today which will be day 7 and switch to oral antibiotics tomorrow. General surgery following appreciate their input. Continue wound dressing changes. (3) Cellulitis of right lower extremity: Code(s): L03.115 - Cellulitis of right lower limb Status: Acute Assessment and Plan: White count normal. Blood cultures negative. As above. (4) SRI (acute kidney injury): Code(s): N17.9 - Acute kidney failure, unspecified Status: Acute Assessment and Plan: Creatinine was elevated on admission and climbed to 1.9. [place] related to above. Acute kidney injury has resolved with creatinine is 0.8 today. Continue to follow. (5) Incarcerated inguinal hernia: Code(s): K40.30 - Unilateral inguinal hernia, with obstruction, without gangrene, not specified as recurrent Status: Deleted Assessment and Plan: Patient had a right incarcerated inguinal hernia status post surgical repair on 02/08/22. She still has the drain in place which per family is supposed to be removed tomorrow. General surgery is following. (6) Encephalopathy: Code(s): G93.40 - Encephalopathy, unspecified Status: Acute Assessment and Plan: Patient had metabolic cephalopathy related to her septic shock. Symptoms resolving. (7) Atrial fibrillation: Code(s): I48.91 - Unspecified atrial fibrillation Status: Chronic Assessment and Plan: Stable. Propranolol on hold due to septic shock. Blood pressure elevated at times now. Heart rate remains stable. Coumadin has been resumed. Continue daily INR. Resume propranolol. Continue add back home medications as she tolerates (8) Cirrhosis: Code(s): K74.60 - Unspecified cirrhosis of liver Status: Acute Assessment and Plan: Patient has a history cirrhosis but ultrasound here shows no surface nodularity. She did have an indeterminate liver mass which may be benign or malignant. MRI is recommended but patient is unwilling to proceed with MRI at this time. She may be more amenable to an open MRI. Labwork was not performed today but yesterday did show elevated bilirubin level 5.6. Liver enzyme levels have been elevated but are trending downward. Probably shock liver. Platelet count was normal on admission but has dropped to 80K. This is by consumptive. Platelet count better yesterday. Repeat labs in the morning. (9) Hyponatremia: Code(s): E87.1 - Hypo-osmolality and hyponatremia Status: Acute Assessment and Plan: Sodium dropped to 122 for 1 day but was back up to 130 the following day. This was transient since the day before she was 126. She has been placed on sodium tablets. Sodium better yesterday. Repeat labs in the morning. Plan DVT prophylaxis: INR therapeutic Code status: DNR Diet: Regular. S
--- NOTE | 2022-03-09 15:35 | PM.PNGS ---
Progress Note: A&P Assessment and Plan (1) History of femoral hernia repair: Code(s): Z98.890 - Other specified postprocedural states; Z87.19 - Personal history of other diseases of the digestive system Status: Chronic Assessment and Plan: Repair looks great. LANNY drain output has diminished significantly. Will DC LANNY drain tonight. I will recheck her again tomorrow. Okay to discharge from surgical standpoint. No reason for further surgical follow-up unless problems. (2) Lymphedema: Code(s): I89.0 - Lymphedema, not elsewhere classified Status: Chronic Assessment and Plan: Bilateral lower extremity lymphedema, severe (3) Cellulitis of right lower extremity: Code(s): L03.115 - Cellulitis of right lower limb Status: Acute Assessment and Plan: admitted for cellulitis right leg. This is not related to her femoral hernia repair and appears to be improving. Discharge when hospitalist service feels appropriate. Subjective Subjective Date/Time Seen: 03/09/22 15:35 Patient reports: other (F/U R incarcerated femoral hernia repair 02/09/22) Interval history: Patient was to see me in the office in f/u of repair incarcerated right femoral hernia tomorrow. She still has a right femoral LANNY drain in place. This was placed due to large amount of serous or lymphatic drainage following her femoral hernia repair. This was magnified as the femoral hernia was also directly adjacent to scar tissue from saphenous vein stripping years ago. She did have high LANNY drain outputs and I chose to leave her drain in at her previous office visit. I was notified today that she was in the hospital and possibly to be discharged today or tomorrow. Rather than have her come back for another office visit, she is seen in the hospital now for surgical follow-up. She was hospitalized due to severe cellulitis of her right lower leg which has been improving. She is also known to have severe bilateral lymphedema. Exam Const: General: comfortable and awake Nutritional Appearance: obese GI: Inspection: incision ( Right inguinal incision dry, well healed. No ecchymosis and no swelling.) and other ( Small amount LANNY drain output, serous) GI Palp: Yes Soft to palpation and No Tenderness to palpation present (GI) Urinary Catheter: Urinary Catheter: patent and draining Objective Data Vital Signs Vital Signs: Vital Signs - 24 hr 03/08/22 16:00 03/08/22 16:00 03/08/22 16:00 Temperature 36.2 C L Pulse Rate 97 92 Respiratory Rate 22 H Blood Pressure 146/73 H Pulse Oximetry 99 99 Oxygen Delivery Room Air 03/08/22 18:00 03/08/22 20:00 03/08/22 20:00 Temperature 36.1 C L Pulse Rate 75 92 91 Respiratory Rate 18 Blood Pressure 128/71 Pulse Oximetry 99 Oxygen Delivery 03/08/22 20:00 03/08/22 22:00 03/09/22 00:00 Temperature 36.2 C L Pulse Rate 91 98 91 Respiratory Rate 18 20 Blood Pressure 147/85 H Pulse Oximetry 99 99 Oxygen Delivery Room Air 03/09/22 00:00 03/09/22 00:00 03/09/22 04:00 Temperature 36.1 C L Pulse Rate 86 86 79 Respiratory Rate 20 18 Blood Pressure 148/73 H Pulse Oximetry 99 100 Oxygen Delivery Room Air 03/09/22 02:00 03/09/22 04:00 03/09/22 04:00 Temperature Pulse Rate 81 81 81 Respiratory Rate 18 Blood Pressure Pulse Oximetry 100 Oxygen Delivery Room Air 03/09/22 06:00 03/09/22 08:00 03/09/22 08:00 Temperature 36.4 C Pulse Rate 86 77 Respiratory Rate 16 Blood Pressure 141/70 H Pulse Oximetry 100 Oxygen Delivery Room Air 03/09/22 08:00 03/09/22 10:00 03/09/22 12:00 Temperature Pulse Rate 83 86 81 Respiratory Rate Blood Pressure Pulse Oximetry Oxygen Delivery 03/09/22 12:00 03/09/22 12:00 03/09/22 14:00 Temperature 36.3 C L Pulse Rate 88 89 Respiratory Rate 20 Blood Pressure 133/71 Pulse Oximetry 100 Oxygen Delivery Room Air Intake/Output Intake
[2022-03-09] MEDS: PROPRANOLOL HCL 20 MG TABLET PO (18:00)
[2022-03-09] MEDS: WARFARIN (*PBKC) 3 MG TABLET PO (18:00)
[2022-03-10] VITALS (16 sets, daily range): BP systolic 111–146; BP diastolic 51–81; PULSE 55–102; RESP 16–20; TEMP 36.1–36.7; O2SAT 95–100; BMI 11.0
[2022-03-10 04:36] LABS: Basophils Percent Auto 0.3 % (0.2-1.2); Eosinophils Absolute Auto 0.3 K/mm3 (0-0.3); Eosinophils Percent Auto 2.1 % (0-4.4); Hematocrit 43.3 % (37.0-47.0); Hemoglobin 14.2 g/dL (12.0-15.0); Immature Granulocyte Absolute 0.46 K/mm3 (0.00-0.031); Immature Granulocyte Percent A 3.8 % (0-0.5); Immature Platelet Fraction Pct 5.6 % (0.9-11.2); Lymphocytes Absolute Auto 1.48 K/mm3 (0.9-3.2); Lymphocytes Percent Auto 12.2 % (18.3-44.2); Mean Corpuscular HGB Conc 32.8 g/dl (32-36); Mean Corpuscular Hemoglobin 32.7 pg (26-34); Mean Corpuscular Volume 99.8 fl (80-100); Mean Platelet Volume 10.7 fl (7.4-10.4); Monocytes Percent Auto 8.1 % (2.6-8.5); Neutrophils Absolute Auto 8.9 K/mm3 (1.3-6.7); Neutrophils Percent Auto 73.5 % (45.5-73.1); Platelet Count Result 116 k/mm3 (150-375); Red Blood Count 4.34 M/mm3 (4.2-5.4); Red Cell Distribution Width 18.4 % (11.5-14.5); White Blood Count 12.1 K/mm3 (4.5-10.0)
[2022-03-10 04:45] LABS: INR 2.4; Prothrombin Time 25.1 Seconds (11.1-14.7)
[2022-03-10 04:47] LABS: Ammonia 21 umol/L (9-30)
[2022-03-10] MEDS: CENTRAL LINE FLUSH 10 ML IV PUSH ×4 (04:47→21:35)
[2022-03-10 04:51] LABS: Alanine Aminotransferase 27 U/L (6-35); Albumin Level 2.2 g/dL (3.5-5.1); Alkaline Phosphatase 154 U/L (38-126); Anion Gap 8 mmol/L (8-16); Aspartate Amino Transferase 33 U/L (14-36); Bilirubin,Total 4.6 mg/dL (0.2-1.3); Blood Urea Nitrogen 34 mg/dL (7-17); Calcium 8.2 mg/dL (8.4-10.2); Carbon Dioxide 28 mmol/L (22-30); Chloride 98 mmol/L (98-107); Estimated CRCL calculation 69 ml/min; Estimated Glomerular Filt Rate > 60; Glucose 78 mg/dL (65-110); Potassium 4.1 mmol/L (3.4-5.0); Sodium 134 mmol/L (137-145)
[2022-03-10 08:51] LABS: Bilirubin Direct 0.9 mg/dL (0-0.3)
[2022-03-10] MEDS: polyethylene glycoL 3350 17 GM POWD.PACK PO (10:04)
[2022-03-10] MEDS: DOXYCYCLINE HYCLATE 100 MG TABLET PO ×2 (10:04→21:32)
[2022-03-10] MEDS: LIDOCAINE 5% PATCH 2 PATCH TRANSDERM (10:04)
[2022-03-10] MEDS: PROPRANOLOL HCL 20 MG TABLET PO ×3 (10:04→17:33)
[2022-03-10] MEDS: SODIUM CHLORIDE 1 GM TABLET PO ×2 (10:04→17:33)
--- NOTE | 2022-03-10 10:50 | PCNFU ---
Nutrition Follow-Up Complete: Increased nutrient needs related to wound healing as evidenced by a deep tissue pressure injury to back Goal:Wound healing PO intake to remain 75% or greater. Pt is progressing towards goal. Pt current nutrition is Regular, PANFILO BID for wound healing. Nutrition recommendation: Continue with current plan of care. Last recorded weight is 114.2 kg - up 4kg from admission. Bowel Motility: No BM reported Labs Reviewed:alb:2.2, NA:134, BUN:34 Meds Noted: novolog, coumadin Skin: Stage II to back Additional Notes: Pt continues on a regular diet, intake at goal at 75-100% most meals. PANFILO BID in place for wound healing. Agree with diet order. Monitor intake, wt, labs. Follow up in 7 days.
[2022-03-10] MEDS: CEPHALEXIN 500 MG CAPSULE PO ×2 (13:19→17:32)
--- NOTE | 2022-03-10 17:15 | PM.IMPN ---
Progress Note: A&P Assessment and Plan (1) Right shoulder pain: Code(s): M25.511 - Pain in right shoulder Status: Acute Assessment and Plan: X-ray showed right shoulder osteoarthritis. Appreciate Neurology consult for weakness. CT scan of the head negative. Neuro recommended MRI of the brain and c-spine but patient refused due to claustrophobia She was offered benzodiazepines to help with this but she refused. Continue PT OT. Increase activity. (2) Septic shock: Code(s): A41.9 - Sepsis, unspecified organism; R65.21 - Severe sepsis with septic shock Status: Acute Assessment and Plan: Patient developed septic shock secondary to cellulitis of the right lower extremity. CT the right lower extremity shows subcutaneous edema and skin thickening consistent with cellulitis but no abscess. Lower extremity venous Dopplers were negative for DVT. Patient was on Levophed and vasopressin and these were able to be weaned off. She was on stress dose steroids these also been stopped. She remains on vancomycin and imipenem which was continued for 7 days. Will switch to oral antibiotics. General surgery following appreciate their input. Continue wound dressing changes. (3) Cellulitis of right lower extremity: Code(s): L03.115 - Cellulitis of right lower limb Status: Acute Assessment and Plan: White count up slightly. Blood cultures negative. Continue abx. (4) SRI (acute kidney injury): Code(s): N17.9 - Acute kidney failure, unspecified Status: Acute Assessment and Plan: Creatinine was elevated on admission and climbed to 1.9. [place] related to above. Acute kidney injury has resolved with creatinine normal today. Continue to follow. (5) Incarcerated inguinal hernia: Code(s): K40.30 - Unilateral inguinal hernia, with obstruction, without gangrene, not specified as recurrent Status: Deleted Assessment and Plan: Patient had a right incarcerated inguinal hernia status post surgical repair on 02/08/22. She still had the drain in place on admission but was removed 03/09. General surgery is following. (6) Encephalopathy: Code(s): G93.40 - Encephalopathy, unspecified Status: Acute Assessment and Plan: Patient had metabolic cephalopathy related to her septic shock. Symptoms resolving. (7) Atrial fibrillation: Code(s): I48.91 - Unspecified atrial fibrillation Status: Chronic Assessment and Plan: Stable. Propranolol was on hold due to septic shock. Blood pressure elevated at times now. Heart rate remains stable. Coumadin has been resumed. INR therapeutic. Propranolol resumed. Continue add back home medications as she tolerates (8) Cirrhosis: Code(s): K74.60 - Unspecified cirrhosis of liver Status: Acute Assessment and Plan: Patient has a history cirrhosis. She did have an indeterminate liver mass and MRI was recommended but patient is unwilling to proceed with MRI at this time. Bilirubin level better at 4.6 (mostly indirect). Liver enzyme levels have been elevated but are trending downward. Possibly shock liver. Platelet count was normal on admission but dropped to 80K. This is due to consumption. Platelet count better today. CT A/P ordered for the liver mass. This shows dilated CBD to 11mm with a 4.6cm liver mass. Cirrhosis is suggested. MR is again recommended. She is aware of the liver mass since November. She is supposed to follow up with an oncologist but she is not sure it is cancer or not. Will check CEA, CA19-9 and AFP. Will defer further workup to her oncologist. (9) Hyponatremia: Code(s): E87.1 - Hypo-osmolality and hyponatremia Status: Acute Assessment and Plan: Sodium dropped to 122 for 1 day but was back up to 130 the following day. This was transient since the day before she was 126. She has been placed on sodium tablets. Sodium better to
[2022-03-10] MEDS: WARFARIN (*PBKC) 3 MG TABLET PO (17:33)
[2022-03-10] MEDS: HYDROcodone/acetaminophen (*CRX) 5-325 MG TABLET 1 TAB PO (21:32)
[2022-03-11] MEDS: CEPHALEXIN 500 MG CAPSULE PO ×4 (00:56→18:06)
[2022-03-11] MEDS: traMADol HCL (*CRX) 50 MG TABLET PO ×3 (01:59→17:37)
[2022-03-11] MEDS: CENTRAL LINE FLUSH 10 ML IV PUSH ×2 (06:06→13:25)
[2022-03-11 06:26] LABS: Basophils Absolute Auto 0.1 K/mm3 (0.0-0.1); Basophils Percent Auto 0.5 % (0.2-1.2); Eosinophils Absolute Auto 0.2 K/mm3 (0-0.3); Eosinophils Percent Auto 1.5 % (0-4.4); Hematocrit 43.6 % (37.0-47.0); Hemoglobin 14.1 g/dL (12.0-15.0); Immature Granulocyte Absolute 0.26 K/mm3 (0.00-0.031); Immature Granulocyte Percent A 2.5 % (0-0.5); Lymphocytes Absolute Auto 1.32 K/mm3 (0.9-3.2); Lymphocytes Percent Auto 12.6 % (18.3-44.2); Mean Corpuscular HGB Conc 32.3 g/dl (32-36); Mean Corpuscular Hemoglobin 32.6 pg (26-34); Mean Corpuscular Volume 100.7 fl (80-100); Mean Platelet Volume 10.3 fl (7.4-10.4); Monocytes Percent Auto 9.5 % (2.6-8.5); Neutrophils Absolute Auto 7.7 K/mm3 (1.3-6.7); Neutrophils Percent Auto 73.4 % (45.5-73.1); Platelet Count Result 111 k/mm3 (150-375); Red Blood Count 4.33 M/mm3 (4.2-5.4); Red Cell Distribution Width 18.8 % (11.5-14.5); White Blood Count 10.5 K/mm3 (4.5-10.0)
[2022-03-11 06:33] LABS: INR 2.7; Prothrombin Time 27.6 Seconds (11.1-14.7)
[2022-03-11 06:34] LABS: Alanine Aminotransferase 23 U/L (6-35); Albumin Level 2.2 g/dL (3.5-5.1); Alkaline Phosphatase 168 U/L (38-126); Anion Gap 6 mmol/L (8-16); Aspartate Amino Transferase 37 U/L (14-36); Bilirubin,Total 4.6 mg/dL (0.2-1.3); Blood Urea Nitrogen 32 mg/dL (7-17); Calcium 8.1 mg/dL (8.4-10.2); Carbon Dioxide 26 mmol/L (22-30); Chloride 103 mmol/L (98-107); Estimated CRCL calculation 69 ml/min; Estimated Glomerular Filt Rate > 60; Glucose 72 mg/dL (65-110); Potassium 4.1 mmol/L (3.4-5.0); Sodium 135 mmol/L (137-145)
[2022-03-11 07:06] LABS: Carcinoembryonic Antigen 1.9 ng/mL (0.0-3.0)
[2022-03-11 07:59] VITALS: BP 132/78; PULSE 66; RESP 16; TEMP 36.2; O2SAT 99
[2022-03-11] MEDS: PROPRANOLOL HCL 20 MG TABLET PO ×3 (08:53→18:06)
[2022-03-11] MEDS: LIDOCAINE 5% PATCH 2 PATCH TRANSDERM (08:54)
[2022-03-11] MEDS: DOXYCYCLINE HYCLATE 100 MG TABLET PO ×2 (08:54→21:19)
[2022-03-11] MEDS: FUROSEMIDE 20 MG TABLET PO (08:54)
[2022-03-11 13:28] VITALS: BMI 10.0
--- NOTE | 2022-03-11 14:42 | PM.DS ---
DS: Admitting Diagnosis Discharge Date 03/11/22 Admitting Diagnosis Altered mental status from septic shock related to RLE cellulitis. DS: Discharge Diagnosis Discharge Diagnosis (1) Septic shock: Code(s): A41.9 - Sepsis, unspecified organism; R65.21 - Severe sepsis with septic shock Status: Acute (2) Cellulitis of right lower extremity: Code(s): L03.115 - Cellulitis of right lower limb Status: Acute (3) SRI (acute kidney injury): Code(s): N17.9 - Acute kidney failure, unspecified Status: Acute (4) Incarcerated inguinal hernia: Code(s): K40.30 - Unilateral inguinal hernia, with obstruction, without gangrene, not specified as recurrent Status: Deleted (5) Encephalopathy: Code(s): G93.40 - Encephalopathy, unspecified Status: Acute (6) Atrial fibrillation: Code(s): I48.91 - Unspecified atrial fibrillation Status: Chronic (7) Right shoulder pain: Code(s): M25.511 - Pain in right shoulder Status: Acute (8) Cirrhosis: Code(s): K74.60 - Unspecified cirrhosis of liver Status: Acute (9) Hyponatremia: Code(s): E87.1 - Hypo-osmolality and hyponatremia Status: Acute DS: Summary Hospital Course Reason for hospitalization: 87yo female with AFib, HTN and cirrhosis here for altered mental status from septic shock related to RLE cellulitis. Please see H&P for details Hospital Course: Patient developed septic shock secondary to cellulitis of the right lower extremity.? She was started on broad spectrum abx. CT the right lower extremity shows subcutaneous edema and skin thickening consistent with cellulitis but no abscess.? Lower extremity venous Dopplers were negative for DVT.? Patient required Levophed and vasopressin and these were able to be weaned off.? She was on stress dose steroids these also been stopped.? She was treated with IV abx for 7 days and then changed to oral. General surgery followed along and appreciate their input.?Blood cultures negative.? Creatinine was elevated on admission and climbed to 1.9.? [place] related to above.? Acute kidney injury has resolved with creatinine normal today.?Able to resume some of her home medications. Patient had a right incarcerated inguinal hernia status post surgical repair on 02/08/22.? She still had the drain in place on admission but this was removed 03/09 by General surgery. Patient had metabolic cephalopathy related to her septic shock.? Symptoms resolved. Propranolol was on hold due to septic shock.? Blood pressure elevated at times now.? Heart rate remained stable.? Coumadin was able to be resumed.? INR became therapeutic.? Propranolol also able to be resumed.? Patient has a history cirrhosis.? She did have an indeterminate liver mass and MRI was recommended but patient is unwilling to proceed with MRI at this time. Bilirubin level at 4.6 (mostly indirect).? Liver enzyme levels have been elevated but are trending downward.? Possibly shock liver.? Platelet count was normal on admission but dropped to 80K felt due to sepsis and consumption.? Platelet count better now. CT A/P ordered for the liver mass. This shows dilated CBD to 11mm with a 4.6cm liver mass. Cirrhosis is suggested. MR is again recommended. She is aware of the liver mass since November. She is supposed to follow up with an oncologist but the diagnosis of cancer has not been made. Discussed findings with and patient. CEA 1.9. CA19-9 and AFP pending. Lasix resumed at low dose. states patient is not on Aldactone. Sodium dropped to 122 for 1 day but was back up to 130 the following day.? This was transient since the day before she was 126.? She has been placed on sodium tablets.? Sodium now into the 130's. Patient overall did well. Cellulitis slowly improving. She was able to be discharged back to [facility] on 03/11/22 Status at Discharge Cognitive/behavioral status at discharge: stable Time Spent with Patient Time att
[2022-03-11 16:57] LABS: EDCOVIDSCREEN Negative (Negative)
--- NOTE | 2022-03-11 16:57 | PC.NURSE ---
Pulled central line at 16:43, 2 sutures removed, Tip intact, held pressure for 11 minutes. No bleeding visualized. xeroform, 2x2, Tegaderm dressing. Patient tolerated procedure well. No pain noted or expressed.
[2022-03-11 17:11] VITALS: BP 109/52; PULSE 68; RESP 20; TEMP 36.3; O2SAT 100
[2022-03-11] MEDS: WARFARIN (*PBKC) 3 MG TABLET PO (18:06)
[2022-03-11 19:57] VITALS: PULSE 89; RESP 18; O2SAT 96
[2022-03-11 20:00] VITALS: BP 96/47; PULSE 89; RESP 18; TEMP 36.5; O2SAT 96
[2022-03-15 20:21] LABS: CA 19-9 20 U/mL (<34)
--- NOTE | 2022-03-17 07:18 | PC.NURSE ---
AFP- 19, CA19-9- 20. Results faxed to PCP. Dr. Patricia wolf.
== END 2022-03-11 21:29 | DRG 871 ==
LOC: ANHICU 03-03 13:36 → ANHIMU 03-07 15:12 → ANHICU 03-15 10:43
PROVIDERS: Internal Medicine; Admitting Provider Chiropractor; PCP Family Medicine; Visit Provider Internal Medicine
DX: A41.9 Sepsis, unspecified organism (principal); G93.41 Metabolic encephalopathy; R65.21 Severe sepsis with septic shock; K72.00 Acute and subacute hepatic failure without coma; L03.115 Cellulitis of right lower limb; N17.9 Acute kidney failure, unspecified; E87.1 Hypo-osmolality and hyponatremia; I89.0 Lymphedema, not elsewhere classified; I11.0 Hypertensive heart disease with heart failure; I50.810 Right heart failure, unspecified; E87.5 Hyperkalemia; Z98.890 Other specified postprocedural states; I48.91 Unspecified atrial fibrillation; M19.90 Unspecified osteoarthritis, unspecified site; K74.60 Unspecified cirrhosis of liver; M19.011 Primary osteoarthritis, right shoulder; I83.019 Varicose veins of right lower extremity with ulcer of unspecified site; Z66 Do not resuscitate; Z20.822 Contact with and (suspected) exposure to COVID-19; R16.0 Hepatomegaly, not elsewhere classified; R79.1 Abnormal coagulation profile; R53.1 Weakness; R79.89 Other specified abnormal findings of blood chemistry; E87.70 Fluid overload, unspecified; E66.9 Obesity, unspecified; Z68.33 Body mass index [BMI] 33.0-33.9, adult; I27.20 Pulmonary hypertension, unspecified; I08.1 Rheumatic disorders of both mitral and tricuspid valves; Z87.19 Personal history of other diseases of the digestive system; Z87.891 Personal history of nicotine dependence; Z79.01 Long term (current) use of anticoagulants; Z90.49 Acquired absence of other specified parts of digestive tract; Z96.60 Presence of unspecified orthopedic joint implant
CPT/HCPCS: 36415; 70450; 71045; 73020; 73700; 74176; 76705; 80048; 80053; 80202; 82105; 82140; 82248; 82378; 82948; 83605; 83735; 84100; 85025; 85027; 85055; 85610; 86301; 87040; 87426; 93306; 97110; 97162; 97166; 97530; A9270; C9803; J0743; J1720; J1815; J3370; J3475; J7030; J7040; P9047